=== PATIENT | female | born 2000 | race Caucasian/White ===

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

== ENCOUNTER 2018-02-18 11:46 | Emergency (ER) | payer SELFPAY ==
[2018-02-18 12:32] LABS: Absolute Monocytes 0.5 K/uL (0.1-1.3); Absolute Neutrophil 6.9 K/uL (1.8-8.0); Basophils % 0.5 % (0-1.3); Eosinophils % 0.5 % (0-4.4); Hematocrit 42.5 % (36.0-45.0); Lymphocytes % 20.7 % (15.3-44.8); MCH 29.2 pg (27.0-35.0); MCV 86.6 fL (80-100); MPV 7.6 fL (7.6-11.3); Monocytes % 5.4 % (3.3-12.3)
[2018-02-18] MEDS ORDERED: NA CHLORIDE 0.9% 1,000 ML ONE (12:32)
[2018-02-18] MEDS ORDERED: ONDANSETRON 4 MG/2 ML VIAL ONE (12:32)
[2018-02-18 12:45] LABS: ALT/SGPT 30 U/L (12-78); AST/SGOT 18 U/L (15-37); Albumin 3.7 g/dL (3.4-5.0); Alkaline Phosphatase 94 U/L (45-117); Amylase Level 31 U/L (25-115); BUN Blood Urea Nitrogen 6 mg/dL (7-18); Bicarbonate 27 mmol/L (21-32); Bilirubin Direct < 0.1 mg/dL (0-0.2); Bilirubin Total 0.3 mg/dL (0.2-1.0); Glucose Level 91 mg/dL (74-106); Lipase 68 U/L (73-393); Potassium 4.1 mmol/L (3.5-5.1); Protein, Total 7.9 g/dL (6.4-8.2); Sodium Level 140 mmol/L (136-145)
--- NOTE | 2018-02-18 13:00 | EDPHYS ---
Physician Documentation [facility] Name: Mallory Parra Age: 17 yrs Sex: Female : 2000 Arrival Date: 02/18/2018 Time: 11:50 Bed 13 Private MD: None, None ED Physician Claudio Riddle HPI: 02/18 12:31 This 17 yrs old Female presents to ER via Ambulatory with complaints of kb Vomiting/Diarrhea. 12:31 The patient presents to the emergency department with nausea, vomiting, diarrhea. kb Onset: The symptoms/episode began/occurred 2 week(s) ago. Possible causes: unknown. The symptoms are aggravated by nothing. The symptoms are alleviated by nothing. Associated signs and symptoms: Pertinent positives: abdominal pain, diarrhea, nausea, vomiting, Pertinent negatives: anorexia, belching, constipation, dysuria, fever, flatulence, GI bleeding, hematuria, vaginal discharge. Severity of symptoms: At their worst the symptoms were moderate in the emergency department the symptoms have improved. The patient has not experienced similar symptoms in the past. The patient has not recently seen a physician. Pt reports n/v/d and abd pain intermittently for 2 weeks. States she came this morning because she threw up and it was a brownish color.. 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 - Social history:: Smoking status: Patient/guardian denies using tobacco. - Ebola Screening: : Patient negative for fever greater than or equal to 101.5 degrees Fahrenheit, and additional compatible Ebola Virus Disease symptoms Patient denies exposure to infectious person Patient denies travel to an Ebola-affected area in the 21 days before illness onset No symptoms or risks identified at this time. ROS: 12:30 Constitutional: Negative for fever, chills, and weight loss, Neck: Negative for injury, kb pain, and swelling, Cardiovascular: Negative for chest pain, palpitations, and edema, Respiratory: Negative for shortness of breath, cough, wheezing, and pleuritic chest pain, Back: Negative for injury and pain, : Negative for injury, bleeding, discharge, and swelling, MS/Extremity: Negative for injury and deformity, Skin: Negative for injury, rash, and discoloration, Neuro: Negative for headache, weakness, numbness, tingling, and seizure. 12:30 Abdomen/GI: Positive for abdominal pain, nausea, vomiting, and diarrhea. Exam: 12:30 Constitutional: This is a well developed, well nourished patient who is awake, alert, kb and in no acute distress. Head/Face: Normocephalic, atraumatic. Chest/axilla: Normal chest wall appearance and motion. Nontender with no deformity. No lesions are appreciated. Cardiovascular: Regular rate and rhythm with a normal S1 and S2. No gallops, murmurs, or rubs. Normal PMI, no JVD. No pulse deficits. Respiratory: Lungs have equal breath sounds bilaterally, clear to auscultation and percussion. No rales, rhonchi or wheezes noted. No increased work of breathing, no retractions or nasal flaring. Skin: Warm, dry with normal turgor. Normal color with no rashes, no lesions, and no evidence of cellulitis. MS/ Extremity: Pulses equal, no cyanosis. Neurovascular intact. Full, normal range of motion. Neuro: Awake and alert, GCS 15, oriented to person, place, time, and situation. Cranial nerves II-XII grossly intact. Motor strength 5/5 in all extremities. Sensory grossly intact. Cerebellar exam normal. Normal gait. 12:30 Abdomen/GI: Inspection: abdomen appears normal, Bowel sounds: normal, in all quadrants, Palpation: soft, in all quadrants, mild abdominal tenderness, in the right upper quadrant and left upper quadrant. Vital Signs: 11:54 BP 133 / 82; Pulse 75; Resp 16; Temp 97.9; Pulse Ox 98% on R/A; Weight 81.65 kg; Height aj 5 ft. 1 in. (154.94 cm); 11:54 Body Mass Index 34.01 (81.65 kg, 154.94 cm) aj MDM: 12:06 Patient medically screened. kb 12:29 Data reviewed: vital signs, nurses notes. Data interpreted: Pulse oximetry: on room air kb is 98 %. Interpretation: normal. 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 02/18 12:06 Order name: Amylase, Serum; Complete Time: 12:56 kb 02/18 12:06 Order name: Basic Metabolic Panel; Complete Time: 12:56 kb 02/18 12:06 Order name: CBC with Diff; Complete Time: 12:56 kb 02/18 12:06 Order name: Hepatic Function; Complete Time: 12:56 kb 02/18 12:06 Order name: Lipase; Complete Time: 12:56 kb 02/18 12:06 Order name: Urine Test (obtain specimen); Complete Time: 12:33 kb 02/18 12:06 Order name: IV Saline Lock; Complete Time: 12:20 kb 02/18 12:06 Order name: Labs collected and sent; Complete Time: 12:20 kb 02/18 12:06 Order name: Urine Dipstick-Ancillary (obtain specimen); Complete Time: 12:33 kb Administered Medications: 12:33 Drug: Zofran 4 mg Route: IVP; Site: right antecubital; la1 13:04 Follow up: Response: No adverse reaction la1 12:33 Drug: NS 0.9% 1000 ml Route: IV; Rate: 1000 ml; Site: right antecubital; la1 13:04 Follow up: IV Status: Completed infusion la1 Disposition: 02/19 09:16 Co-signature as Attending Physician, Claudio Riddle MD I agree with the assessment and andrew plan of care. Disposition: 02/18/18 12:59 Discharged to Home. Impression: Nausea with vomiting, unspecified, Diarrhea, unspecified. - Condition is Stable. - Discharge Instructions: Food Choices to Help Relieve Diarrhea, Adult, Nausea and Vomiting, Adult, [id number], Diarrhea, Adult, [id number]. - Prescriptions for Bentyl 20 mg Oral Tablet - take 1 tablet by ORAL route every 6 hours As needed; 20 tablet. Zofran 4 mg Oral Tablet - take 1 tablet by ORAL route every 6 hours As needed; 20 tablet. - Medication Reconciliation Form, Thank You Letter, Antibiotic Education, Prescription Opioid Use form. - Follow up: Emergency Department; When: As needed; Reason: Worsening of condition. Follow up: Private Physician; When: 2 - 3 days; Reason: Recheck today's complaints, Continuance of care, Re-evaluation by your physician. Signatures: Dispatcher [employer] EDMS RonnOlvinMeagan, RN INTERN-C RN INTERN-Ckb Ana Yusuf RN Claudio Handy MD MD cha Attema, Lee, RN RN la1 Corrections: (The following items were deleted from the chart) 02/18 13:05 12:59 02/18/2018 12:59 Discharged to Home. Impression: Nausea with vomiting, la1 unspecified; Diarrhea, unspecified. Condition is Stable. Forms are Medication Reconciliation Form, Thank You Letter, Antibiotic Education, Prescription Opioid Use. Follow up: Emergency Department; When: As needed; Reason: Worsening of condition. Follow up: Private Physician; When: 2 - 3 days; Reason: Recheck today's complaints, Continuance of care, Re-evaluation by your physician. kb
--- NOTE | 2018-02-18 13:00 | ER ---
Nurse's Notes [facility] Name: Mallory Parra Age: 17 yrs Sex: Female : 2000 Arrival Date: 02/18/2018 Time: 11:50 Bed 13 Private MD: None, None Diagnosis: Nausea with vomiting, unspecified;Diarrhea, unspecified Presentation: 02/18 11:53 Presenting complaint: Patient states: Vomiting and diarrhea since this AM. Denies aj abdominal pain. Transition of care: patient was not received from another setting of care. Onset of symptoms was February 18, 2018. Risk Assessment: Do you want to hurt yourself or someone else? Patient reports no desire to harm self or others. Initial Sepsis Screen: Does the patient meet any 2 criteria? No. Patient's initial sepsis screen is negative. Does the patient have a suspected source of infection? No. Patient's initial sepsis screen is negative. Care prior to arrival: None. 11:53 Method Of Arrival: Ambulatory aj 11:53 Acuity: YOEL 3 aj Triage Assessment: 11:54 General: Appears in no apparent distress. comfortable, Behavior is calm, cooperative, aj appropriate for age. Pain: Denies pain. Neuro: Level of Consciousness is awake, alert, obeys commands, Oriented to person, place, time, situation, Appropriate for age. Respiratory: Airway is patent Respiratory effort is even, unlabored, Respiratory pattern is regular, symmetrical. GI: Reports diarrhea, nausea, vomiting. Derm: Skin is intact, is healthy with good turgor, Skin is pink, warm \T\ dry. normal. 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 - Social history:: Smoking status: Patient/guardian denies using tobacco. - Ebola Screening: : Patient negative for fever greater than or equal to 101.5 degrees Fahrenheit, and additional compatible Ebola Virus Disease symptoms Patient denies exposure to infectious person Patient denies travel to an Ebola-affected area in the 21 days before illness onset No symptoms or risks identified at this time. Screenin:20 Abuse screen: Denies threats or abuse. Denies injuries from another. Nutritional la1 screening: No deficits noted. Tuberculosis screening: No symptoms or risk factors identified. Fall Risk None identified. Assessment: 12:19 General: Appears in no apparent distress. Behavior is calm, cooperative. Pain: Denies la1 pain. Neuro: Level of Consciousness is awake, alert, obeys commands, Oriented to person, place, time, situation. Cardiovascular: Capillary refill < 3 seconds Patient's skin is warm and dry. Respiratory: Airway is patent Respiratory effort is even, unlabored, Respiratory pattern is regular, symmetrical. GI: Abdomen is round non-distended, Bowel sounds present X 4 quads. Abd is soft and non tender X 4 quads. : No signs and/or symptoms were reported regarding the genitourinary system. Vital Signs: 11:54 BP 133 / 82; Pulse 75; Resp 16; Temp 97.9; Pulse Ox 98% on R/A; Weight 81.65 kg; Height aj 5 ft. 1 in. (154.94 cm); 11:54 Body Mass Index 34.01 (81.65 kg, 154.94 cm) aj ED Course: 11:50 Patient arrived in ED. mr 11:50 None, None is Private Physician. mr 11:53 Triage completed. aj 11:54 Arm band placed on right wrist. Patient placed in waiting room, Patient notified of aj wait time. 11:57 Braeden Browne RN is Primary Nurse. la1 12:06 Meagan Brody FNP-C is [facility]. kb 12:06 Claudio Riddle MD is Attending Physician. kb 12:19 No provider procedures requiring assistance completed. Inserted saline lock: 20 gauge la1 in right antecubital area, using aseptic technique. Blood collected. 12:20 Patient has correct armband on for positive identification. la1 13:05 IV discontinued, intact, bleeding controlled, No redness/swelling at site. Pressure la1 dressing applied. Administered Medications: 12:33 Drug: Zofran 4 mg Route: IVP; Site: right antecubital; la1 13:04 Follow up: Response: No adverse reaction la1 12:33 Drug: NS 0.9% 1000 ml Route: IV; Rate: 1000 ml; Site: right antecubital; la1 13:04 Follow up: IV Status: Completed infusion la1 Outcome: 12:59 Discharge ordered by . bao 13:05 Discharged to home ambulatory. la1 13:05 Condition: stable 13:05 Discharge instructions given to patient, Instructed on discharge instructions, follow up and referral plans. medication usage, Demonstrated understanding of instructions, follow-up care, medications, Prescriptions given X 2. 13:05 Patient left the ED. la1 Signatures: Meagan Brody, CHEMICAL EDUCATOR-C CHEMICAL EDUCATOR-Ana Leon, RN RN Roslyn Johnston Lee RN RN la1
== END 2018-02-18 13:05 | disposition home or self-care (01) ==
LOC: ER 11:46
DX: R11.2 Nausea with vomiting, unspecified (principal); R19.7 Diarrhea, unspecified; M41.9 Scoliosis, unspecified; J40 Bronchitis, not specified as acute or chronic
CPT/HCPCS: 36415; 80048; 80076; 82150; 83690; 85025; 96361; 96374; 99284; J2405; J7030

== ENCOUNTER 2019-06-17 23:34 | Emergency (ER) | payer BC, SELFPAY ==
--- NOTE | 2019-06-18 00:47 | EDPHYS ---
Physician Documentation [facility] Name: Mallory Parra Age: 19 yrs Sex: Female : 2000 Arrival Date: 06/17/2019 Time: 23:38 Bed 7 Private MD: ED Physician Piyush Lindquist HPI: 06/18 00:35 This 19 yrs old Female presents to ER via Ambulatory with complaints of Flu tw4 Symptoms. 00:35 The patient or guardian reports cough. Onset: The symptoms/episode began/occurred tw4 today. Severity of symptoms: At their worst the symptoms were mild. Modifying factors: The symptoms are alleviated by nothing, the symptoms are aggravated by nothing. The patient has not experienced similar symptoms in the past. 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 - Social history:: Smoking status: Patient/guardian denies using tobacco, Smoking status: Patient/guardian denies using tobacco. - Ebola Screening: : Patient negative for fever greater than or equal to 101.5 degrees Fahrenheit, and additional compatible Ebola Virus Disease symptoms Patient denies exposure to infectious person No symptoms or risks identified at this time. ROS: 06/18 00:35 Cardiovascular: Negative for chest pain, palpitations, and edema, Respiratory: Negative tw4 for shortness of breath, cough, wheezing, and pleuritic chest pain, Back: Negative for injury and pain, MS/Extremity: Negative for injury and deformity, Skin: Negative for injury, rash, and discoloration, Neuro: Negative for headache, weakness, numbness, tingling, and seizure. Constitutional: Positive for body aches, chills. Abdomen/GI: Positive for nausea, Negative for abdominal pain, nausea and vomiting, nausea, vomiting, and diarrhea, vomiting, diarrhea, constipation, abdominal cramps, abdominal distension, anorexia, dysphagia, hematemesis, black/tarry stool, rectal pain. Exam: 00:35 Constitutional: This is a well developed, well nourished patient who is awake, alert, tw4 and in no acute distress. Head/Face: Normocephalic, atraumatic. Chest/axilla: Normal chest wall appearance and motion. Nontender with no deformity. No lesions are appreciated. Cardiovascular: Regular rate and rhythm with a normal S1 and S2. No gallops, murmurs, or rubs. Normal PMI, no JVD. No pulse deficits. Respiratory: Lungs have equal breath sounds bilaterally, clear to auscultation and percussion. No rales, rhonchi or wheezes noted. No increased work of breathing, no retractions or nasal flaring. Abdomen/GI: Soft, non-tender, with normal bowel sounds. No distension or tympany. No guarding or rebound. No evidence of tenderness throughout. Back: No spinal tenderness. No costovertebral tenderness. Full range of motion. MS/ Extremity: Pulses equal, no cyanosis. Neurovascular intact. Full, normal range of motion. Neuro: Awake and alert, GCS 15, oriented to person, place, time, and situation. Cranial nerves II-XII grossly intact. Motor strength 5/5 in all extremities. Sensory grossly intact. Cerebellar exam normal. Normal gait. Vital Signs: 06/17 23:49 BP 126 / 83; Pulse 75; Resp 18; Temp 98; Pulse Ox 97% ; Weight 81.65 kg; Height 5 ft. 4 wh in. (162.56 cm); 06/18 00:15 BP 114 / 76; Pulse 71; Resp 18; Pulse Ox 97% on R/A; ea 00:56 BP 121 / 94; Pulse 75; Resp 16; Temp 98.4(O); Pulse Ox 98% on R/A; Pain 4/10; tl1 06/17 23:49 Body Mass Index 30.90 (81.65 kg, 162.56 cm) wh MDM: 06/17 23:46 Patient medically screened. tw4 06/18 00:35 Data reviewed: vital signs, nurses notes. Data interpreted: Pulse oximetry: tw4 Interpretation: normal. Counseling: I had a detailed discussion with the patient and/or guardian regarding: the historical points, exam findings, and any diagnostic results supporting the discharge/admit diagnosis. Special discussion: I discussed with the patient/guardian in detail that at this point there is no indication for admission to the hospital. It is understood, however, that if the symptoms persist or worsen the patient needs to return immediately for re-evaluation. 06/17 23:46 Order name: Flu tw4 06/17 23:46 Order name: Strep tw4 06/18 00:31 Order name: Group A Streptococcus Rapid Sc EDAR 06/18 00:31 Order name: Influenza Screen (A EDMS Administered Medications: 00:52 Drug: TORadol 60 mg Route: IM; Site: left gluteus; tl1 01:08 Follow up: Response: No adverse reaction; No change in condition; Medication tl1 administered at discharge. Disposition: 06/18/19 00:46 Discharged to Home. Impression: Viral infection, unspecified. - Condition is Stable. - Discharge Instructions: Antibiotic Resistance, Viral Respiratory Infection, Viral Respiratory Infection, [id number]. - Prescriptions for Ibuprofen 800 mg Oral Tablet - take 1 tablet by ORAL route every 8 hours As needed take with food; 30 tablet. - Medication Reconciliation Form, Thank You Letter, Antibiotic Education, Prescription Opioid Use form. - Follow up: Private Physician; When: Upon discharge from the Emergency Department; Reason: Recheck today's complaints, Continuance of care. - Problem is new. - Symptoms are unchanged. Signatures: Dispatcher [employer] [facility] Destiny Perez RN DONNA tl1 Priscilla Flynn RN Darlyn Guerrero ea, Terrence, MD MD tw4 Corrections: (The following items were deleted from the chart) 01:09 00:46 06/18/2019 00:46 Discharged to Home. Impression: Viral infection, unspecified. tl1 Condition is Stable. Forms are Medication Reconciliation Form, Thank You Letter, Antibiotic Education, Prescription Opioid Use. Follow up: Private Physician; When: Upon discharge from the Emergency Department; Reason: Recheck today's complaints, Continuance of care. Problem is new. Symptoms are unchanged. tw4
--- NOTE | 2019-06-18 00:47 | ER ---
Nurse's Notes [facility] Name: Mallory Parra Age: 19 yrs Sex: Female : 2000 Arrival Date: 06/17/2019 Time: 23:38 Bed 7 Private MD: Diagnosis: Viral infection, unspecified Presentation: 06/17 23:47 Presenting complaint: Patient states: She was seen in [place] and was prescribed Amox for cough, states she still has cough and 3 days ago started having chills, body aches, congestion, runny nose and nausea but denies fever. Transition of care: patient was not received from another setting of care. Onset of symptoms was June 15, 2019. Risk Assessment: Do you want to hurt yourself or someone else? Patient reports no desire to harm self or others. Initial Sepsis Screen: Does the patient meet any 2 criteria? No. Patient's initial sepsis screen is negative. Does the patient have a suspected source of infection? No. Patient's initial sepsis screen is negative. Care prior to arrival: None. 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 - Social history:: Smoking status: Patient/guardian denies using tobacco, Smoking status: Patient/guardian denies using tobacco. - Ebola Screening: : Patient negative for fever greater than or equal to 101.5 degrees Fahrenheit, and additional compatible Ebola Virus Disease symptoms Patient denies exposure to infectious person No symptoms or risks identified at this time. Screenin:50 Abuse screen: Denies threats or abuse. Denies injuries from another. Nutritional screening: No deficits noted. Tuberculosis screening: No symptoms or risk factors identified. Fall Risk None identified. Assessment: 23:50 General: Appears in no apparent distress. Behavior is calm, cooperative, appropriate ea for age. Pain: Denies pain. Neuro: Level of Consciousness is awake, alert, obeys commands, Oriented to person, place, time, situation. Cardiovascular: Patient's skin is warm and dry. Respiratory: Airway is patent Respiratory effort is even, unlabored, Respiratory pattern is regular, symmetrical. Derm: Skin is pink, warm \T\ dry. Vital Signs: 23:49 BP 126 / 83; Pulse 75; Resp 18; Temp 98; Pulse Ox 97% ; Weight 81.65 kg; Height 5 ft. 4 wh in. (162.56 cm); 06/18 00:15 BP 114 / 76; Pulse 71; Resp 18; Pulse Ox 97% on R/A; ea 00:56 BP 121 / 94; Pulse 75; Resp 16; Temp 98.4(O); Pulse Ox 98% on R/A; Pain 4/10; tl1 06/17 23:49 Body Mass Index 30.90 (81.65 kg, 162.56 cm) ED Course: 06/17 23:38 Patient arrived in ED. jg7 23:46 Piyush Lindquist MD is Attending Physician. tw4 23:49 Triage completed. 23:49 Priscilla Flynn RN is Primary Nurse. ea 23:51 Arm band placed on right wrist. ea 23:51 Patient has correct armband on for positive identification. Bed in low position. Call light in reach. Side rails up X 1. Pulse ox on. NIBP on. 23:52 Patient has correct armband on for positive identification. Bed in low position. Call light in reach. 06/18 01:07 No provider procedures requiring assistance completed. Patient did not have IV access tl1 during this emergency room visit. Administered Medications: 00:52 Drug: TORadol 60 mg Route: IM; Site: left gluteus; tl1 01:08 Follow up: Response: No adverse reaction; No change in condition; Medication tl1 administered at discharge. Outcome: 00:46 Discharge ordered by . tw4 01:07 Discharged to home ambulatory, with friend. tl1 01:07 Condition: stable 01:07 Discharge instructions given to patient, Instructed on discharge instructions, follow up and referral plans. medication usage, Demonstrated understanding of instructions, follow-up care, medications, Prescriptions given X 1. 01:09 Patient left the ED. tl1 Signatures: Destiny Perez RN RN tl1 Priscilla Flynn RN RN ea Oriana, Piyush Felix MD MD tw4 Micha, Monica [email or web address]
[2019-06-18] MEDS ORDERED: KETOROLAC 30 MG/ML INJ ONE (00:50)
[2019-06-18 03:54] VITALS: BP 121/94; TEMP 98.4; O2SAT 98
== END 2019-06-18 01:09 | disposition home or self-care (01) ==
LOC: ER 23:34
DX: B34.9 Viral infection, unspecified (principal); F32.9 Major depressive disorder, single episode, unspecified; F90.9 Attention-deficit hyperactivity disorder, unspecified type
CPT/HCPCS: 87070; 87081; 87804; 96372; 99283

== ENCOUNTER 2019-10-03 13:55 | Emergency (ER) | payer BC ==
--- NOTE | 2019-10-03 14:46 | EDPHYS ---
Physician Documentation [facility] Name: Mallory Parra Age: 19 yrs Sex: Female : 2000 Arrival Date: 10/03/2019 Time: 14:00 Bed 13 Private MD: Lincoln Sims E ED Physician Bonita Walters HPI: 10/02 14:46 This 19 yrs old Female presents to ER via Ambulatory with complaints of Back jr8 Pain. 14:46 The patient presents with pain that is acute. The symptoms are located in the low back. jr8 Onset: The symptoms/episode began/occurred acutely, today. The pain does not radiate. Associated signs and symptoms: The patient has no apparent associated signs or symptoms. The problem was sustained when lifting heavy object. Modifying factors: The patient symptoms are alleviated by rest, the patient symptoms are aggravated by bending, movement, standing. Severity of symptoms: At their worst the symptoms were mild, in the emergency department the symptoms are unchanged. The patient has not experienced similar symptoms in the past. The patient has not recently seen a physician. 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 - Social history:: Smoking status: Patient denies any tobacco usage or history of. ROS: 14:46 Eyes: Negative for injury, pain, redness, and discharge, ENT: Negative for injury, jr8 pain, and discharge, Neck: Negative for injury, pain, and swelling, Cardiovascular: Negative for chest pain, palpitations, and edema, Respiratory: Negative for shortness of breath, cough, wheezing, and pleuritic chest pain, Abdomen/GI: Negative for abdominal pain, nausea, vomiting, diarrhea, and constipation, MS/Extremity: Negative for injury and deformity, Skin: Negative for injury, rash, and discoloration, Neuro: Negative for headache, weakness, numbness, tingling, and seizure. 14:46 Back: Positive for pain at rest, pain with movement, Negative for decreased range of motion, radiated pain. Exam: 14:46 Eyes: Pupils equal round and reactive to light, extra-ocular motions intact. Lids and jr8 lashes normal. Conjunctiva and sclera are non-icteric and not injected. Cornea within normal limits. Periorbital areas with no swelling, redness, or edema. ENT: Nares patent. No nasal discharge, no septal abnormalities noted. Tympanic membranes are normal and external auditory canals are clear. Oropharynx with no redness, swelling, or masses, exudates, or evidence of obstruction, uvula midline. Mucous membranes moist. Neck: Trachea midline, no thyromegaly or masses palpated, and no cervical lymphadenopathy. Supple, full range of motion without nuchal rigidity, or vertebral point tenderness. No Meningismus. Cardiovascular: Regular rate and rhythm with a normal S1 and S2. No gallops, murmurs, or rubs. Normal PMI, no JVD. No pulse deficits. Respiratory: Lungs have equal breath sounds bilaterally, clear to auscultation and percussion. No rales, rhonchi or wheezes noted. No increased work of breathing, no retractions or nasal flaring. Abdomen/GI: Soft, non-tender, with normal bowel sounds. No distension or tympany. No guarding or rebound. No evidence of tenderness throughout. Back: No spinal tenderness. No costovertebral tenderness. Full range of motion. Skin: Warm, dry with normal turgor. Normal color with no rashes, no lesions, and no evidence of cellulitis. MS/ Extremity: Pulses equal, no cyanosis. Neurovascular intact. Full, normal range of motion. Neuro: Awake and alert, GCS 15, oriented to person, place, time, and situation. Cranial nerves II-XII grossly intact. Motor strength 5/5 in all extremities. Sensory grossly intact. Cerebellar exam normal. Normal gait. Vital Signs: 14:03 BP 128 / 66; Pulse 84; Resp 17; Temp 98.9; Pulse Ox 99% ; Weight 83.91 kg; Pain 3/10; jl7 MDM: 14:07 Patient medically screened. jr8 14:44 Data reviewed: vital signs, nurses notes, and as a result, I will discharge patient. jr8 Data interpreted: Pulse oximetry: on room air is 99 %. Interpretation: normal. Counseling: I had a detailed discussion with the patient and/or guardian regarding: the historical points, exam findings, and any diagnostic results supporting the discharge/admit diagnosis, the need for outpatient follow up, a family practitioner, to return to the emergency department if symptoms worsen or persist or if there are any questions or concerns that arise at home. Administered Medications: No medications were administered Disposition: 16:22 Co-signature as Attending Physician, Bonita Walters MD. ma2 Disposition: 10/03/19 14:45 Discharged to Home. Impression: Low back pain. - Condition is Stable. - Discharge Instructions: Back Pain, Adult, Musculoskeletal Pain, Back Injury Prevention, Uyep-qs-Vimo, Back Exercises, [id number], Heat Therapy. - Prescriptions for meloxicam 15 mg Oral tablet - take 1 tablet by ORAL route once daily As needed; 10 tablet. - Medication Reconciliation Form, Thank You Letter, Antibiotic Education, Prescription Opioid Use, Work release form form. - Follow up: Lincoln Sims MD; When: 1 week; Reason: Recheck today's complaints, Continuance of care, Re-evaluation by your physician. - Problem is new. - Symptoms have improved. Signatures: Lam Souza PA PA jr8 Ray Cancino RN RN jl7 Bonita Walters MD MD ma2 Corrections: (The following items were deleted from the chart) 14:55 14:45 10/03/2019 14:45 Discharged to Home. Impression: Low back pain. Condition is jl7 Stable. Forms are Medication Reconciliation Form, Thank You Letter, Antibiotic Education, Prescription Opioid Use. Follow up: Lincoln Sims; When: 1 week; Reason: Recheck today's complaints, Continuance of care, Re-evaluation by your physician. Problem is new. Symptoms have improved. jr8
--- NOTE | 2019-10-03 14:46 | ER ---
Nurse's Notes [facility] Name: Mallory Parra Age: 19 yrs Sex: Female : 2000 Arrival Date: 10/03/2019 Time: 14:00 Bed 13 Private MD: Lincoln Sims E Diagnosis: Low back pain Presentation: 10/02 14:03 Chief complaint: Patient states: Lifting a crate of candy at work at 1300 and my lower jl7 back started hurting. Coronavirus screen: Patient denies fever greater than 100.4F, cough, shortness of breath, or difficulty breathing. Proceed with normal triage process. Ebola Screen: No symptoms or risks identified at this time. Initial Sepsis Screen: Does the patient meet any 2 criteria? No. Patient's initial sepsis screen is negative. Does the patient have a suspected source of infection? No. Patient's initial sepsis screen is negative. Risk Assessment: Do you want to hurt yourself or someone else? Patient reports no desire to harm self or others. Onset of symptoms was October 03, 2019 at 13:00. 14:03 Method Of Arrival: Ambulatory 7 14:03 Acuity: YOEL 4 jl7 Triage Assessment: 14:05 General: Appears in no apparent distress. uncomfortable, Behavior is calm, cooperative, jl7 appropriate for age. Pain: Complains of pain in low back area Pain currently is 3 out of 10 on a pain scale. Musculoskeletal: Range of motion: intact in all extremities. 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 - Social history:: Smoking status: Patient denies any tobacco usage or history of. Screenin:51 Abuse screen: Denies threats or abuse. Denies injuries from another. Nutritional jl7 screening: No deficits noted. Tuberculosis screening: No symptoms or risk factors identified. Fall Risk None identified. Assessment: 14:10 General: Appears in no apparent distress. uncomfortable, Behavior is calm, cooperative, jl7 appropriate for age. Pain: Complains of pain in low back area Pain currently is 3 out of 10 on a pain scale. Neuro: Level of Consciousness is awake, alert, obeys commands, Oriented to person, place, time, situation, Moves all extremities. Full function Gait is steady. Cardiovascular: Patient's skin is warm and dry. Respiratory: Airway is patent Respiratory effort is even, unlabored, Respiratory pattern is regular, symmetrical. Derm: Skin is pink, warm \T\ dry. Vital Signs: 14:03 BP 128 / 66; Pulse 84; Resp 17; Temp 98.9; Pulse Ox 99% ; Weight 83.91 kg; Pain 3/10; jl7 ED Course: 14:00 Patient arrived in ED. mr 14:00 Lincoln Sims MD is Private Physician. mr 14:04 Triage completed. jl7 14:05 Arm band placed on right wrist. jl7 14:07 [facility]. jr8 14:07 Bonita Walters MD is Attending Physician. jr8 14:10 Patient has correct armband on for positive identification. Bed in low position. Call jl7 light in reach. Side rails up X 1. 14:11 Elaine Eisenberg, DONNA is Primary Nurse. ll1 14:45 Lincoln Sims MD is Referral Physician. jr8 14:51 No provider procedures requiring assistance completed. Patient did not have IV access jl7 during this emergency room visit. Administered Medications: No medications were administered Outcome: 14:45 Discharge ordered by . jr8 14:51 Discharged to home ambulatory. jl7 14:51 Condition: stable 14:51 Discharge instructions given to patient, Instructed on discharge instructions, follow up and referral plans. medication usage, Demonstrated understanding of instructions, follow-up care, medications, Prescriptions given X 1. 14:55 Patient left the ED. jl7 Signatures: Rosalie Parada mr Lam Souza PA PA jr8 Ray Cancino RN RN jl7 Elaine Eisenberg RN RN ll1
[2019-10-03 15:06] VITALS: O2SAT 99
[2019-10-03 15:15] VITALS: BP 123/85; TEMP 98.5
== END 2019-10-03 14:55 | disposition home or self-care (01) ==
LOC: ER 13:55
DX: M54.5 Low back pain (principal); F32.9 Major depressive disorder, single episode, unspecified
CPT/HCPCS: 99282

== ENCOUNTER 2020-05-04 17:42 | Emergency (ER) | payer BC ==
[2020-05-04 20:09] LABS: Urine Blood 3+ (NEG); Urine Glucose NEGATIVE (NEG); Urine Protein NEGATIVE (NEG); Urine Specific Gravity 1.025 (1.005-1.030); Urine pH 6.5 (5.0-7.0)
[2020-05-04] MEDS ORDERED: AZITHROMYCIN 250 MG TAB ONE (20:17)
[2020-05-04] MEDS ORDERED: METHYLPREDNISOLONE 125 MG INJ ONE (20:18)
[2020-05-04] MEDS ORDERED: DIPHENHYDRAMINE 25 MG TAB/CAP ONE (20:18)
[2020-05-04] MEDS ORDERED: WATER FOR INJ,STERILE 10 ML ONE (20:19)
[2020-05-04] MEDS ORDERED: FAMOTIDINE 20 MG TAB ONE (20:19)
[2020-05-04] MEDS ORDERED: CEFTRIAXONE 250 MG/VIAL ONE (20:19)
--- NOTE | 2020-05-04 21:04 | ER ---
Nurse's Notes [facility] Name: Mallory Parra Age: 19 yrs Sex: Female : 2000 Arrival Date: 05/04/2020 Time: 17:45 Bed 16 Private MD: Diagnosis: Urticaria, unspecified;Abnormal uterine and vaginal bleeding, unspecified Presentation: 05/04 17:46 Chief complaint: Patient states: rash x 1 week, also reports that she had sexual sv intercourse with someone a couple of days ago and started having vaginal spotting since. Coronavirus screen: Client denies travel out of the [place] in the last 14 days. At this time, the client does not indicate any symptoms associated with coronavirus-19. Ebola Screen: No symptoms or risks identified at this time. Risk Assessment: Do you want to hurt yourself or someone else? Patient reports no desire to harm self or others. Onset of symptoms was April 2020. 17:46 Method Of Arrival: Ambulatory sv 17:46 Acuity: YOEL 3 sv 17:47 Initial Sepsis Screen: Does the patient meet any 2 criteria? HR > 90 bpm. No. Patient's sv initial sepsis screen is negative. Does the patient have a suspected source of infection? No. Patient's initial sepsis screen is negative. Triage Assessment: 17:49 General: Appears in no apparent distress. comfortable, Behavior is calm, cooperative, sv appropriate for age. Pain: Denies pain. Neuro: Level of Consciousness is awake, alert, obeys commands, Oriented to person, place, time, situation, Gait is steady. Respiratory: Respiratory effort is even, unlabored. : Reports vaginal bleeding that is spotty. Derm: Rash noted that is red, on back, chest, abdomen, right arm, left arm, right leg and left leg. 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 - Social history:: Smoking status: Patient denies any tobacco usage or history of. Screenin:47 Abuse screen: Denies threats or abuse. Denies injuries from another. Nutritional zb screening: No deficits noted. Tuberculosis screening: No symptoms or risk factors identified. Fall Risk None identified. Assessment: 18:40 General: Appears in no apparent distress. comfortable, well groomed, Behavior is calm, zb cooperative, appropriate for age, Denies fever, feeling ill, fatigue, chills. Pain: Complains of pain in abdomen Quality of pain is described as crampy, Pain began 1 day ago. Neuro: No deficits noted. Level of Consciousness is awake, alert, obeys commands, Oriented to person, place, time, situation. Cardiovascular: No deficits noted. Reports None. Cardiovascular: Reports Capillary refill < 3 seconds in bilateral fingers. Respiratory: No deficits noted. Airway is patent Trachea midline Respiratory effort is even, unlabored, Respiratory pattern is regular. GI: Abdomen is round obese. : Reports vaginal bleeding that is spotty. :. Derm: Skin is intact, is healthy with good turgor, Rash noted that is itchy, papular, red, raised, on trunkal- bilateral flank area, upper thigh area, and b/t wrist. Musculoskeletal: No deficits noted. No signs and/or symptoms reported regarding the musculoskeletal system. Circulation, motion, and sensation intact. 18:59 Reassessment: spoke to pt states she would like an STD test. Had unprotected sex on zb 05/02/20. 19:05 Reassessment: Patient appears in no apparent distress at this time. Patient and/or jb4 family updated on plan of care and expected duration. Pain level reassessed. Patient is alert, oriented x 3, equal unlabored respirations, skin warm/dry/pink. 20:10 Reassessment: Patient appears in no apparent distress at this time. Patient and/or jb4 family updated on plan of care and expected duration. Pain level reassessed. Patient is alert, oriented x 3, equal unlabored respirations, skin warm/dry/pink. 21:11 Reassessment: Patient appears in no apparent distress at this time. Patient and/or jb4 family updated on plan of care and expected duration. Pain level reassessed. Patient is alert, oriented x 3, equal unlabored respirations, skin warm/dry/pink. Vital Signs: 17:47 BP 141 / 91; Pulse 92; Resp 16; Temp 98.7; Pulse Ox 100% ; Weight 88 kg; Height 5 ft. 1 sv in. (154.94 cm); 20:30 BP 121 / 74; Pulse 80; Resp 16; Pulse Ox 99% on R/A; jb4 17:47 Body Mass Index 36.66 (88.00 kg, 154.94 cm) sv ED Course: 17:45 Patient arrived in ED. sv 17:46 Arm band placed on. sv 17:47 Triage completed. sv 18:30 Aristides Walker NP is PHCP. pm1 18:30 Claudio Riddle MD is Attending Physician. pm1 18:40 Rehana Duran, DONNA is Primary Nurse. zb 18:47 Patient has correct armband on for positive identification. Bed in low position. Call zb light in reach. Side rails up X 1. Adult w/ patient. Pulse ox on. NIBP on. Door closed. Noise minimized. Warm blanket given. Head of bed elevated. 18:50 No provider procedures requiring assistance completed. zb 19:34 Primary Nurse role handed off by Rehana Duran RN mw2 19:46 Simon Smith, DONNA is Primary Nurse. jb4 21:11 Patient did not have IV access during this emergency room visit. jb4 Administered Medications: 20:13 Drug: AZITHromycin 1 grams Route: PO; jb4 21:00 Follow up: Response: No adverse reaction jb4 20:14 Drug: Pepcid 20 mg Route: PO; jb4 21:00 Follow up: Response: No adverse reaction jb4 20:14 Drug: Benadryl 25 mg Route: PO; jb4 21:00 Follow up: Response: No adverse reaction jb4 20:25 Drug: SOLU-Medrol 125 mg Route: IM; Site: left gluteus; jb4 21:00 Follow up: Response: No adverse reaction jb4 20:25 Drug: Rocephin (cefTRIAXone) 250 mg Route: IM; Site: left gluteus; jb4 21:00 Follow up: Response: No adverse reaction jb4 Outcome: 21:04 Discharge ordered by . pm1 21:11 Discharged to home ambulatory, with friend. jb4 21:11 Condition: stable 21:11 Discharge instructions given to patient, Instructed on discharge instructions, follow up and referral plans. medication usage, Demonstrated understanding of instructions, follow-up care, medications, Prescriptions given X 3. 21:12 Patient left the ED. jb4 Signatures: Salma Wilcox, RN RN sv Aristides Walker, ELLYN SALES DESIGNER pm1 Simon Smith RN RN jb4 Paresh Montenegro mw2 Rehana Duran RN RN zb Corrections: (The following items were deleted from the chart) 17:49 17:47 Pulse 92bpm; Resp 16bpm; Pulse Ox 100%; Temp 98.7F; 88 kg; Height 5 ft. 1 in.; sv BMI: 36.6; sv
--- NOTE | 2020-05-04 21:04 | EDPHYS ---
Physician Documentation [facility] Name: Mallory Parra Age: 19 yrs Sex: Female : 2000 Arrival Date: 05/04/2020 Time: 17:45 Bed 16 Private MD: KRISTIN Physician Claudio Riddle HPI: 05/04 19:26 This 19 yrs old Female presents to ER via Ambulatory with complaints of pm1 Vaginal Bleeding, Rash. 19:26 The patient presents with vaginal bleeding that is spotting. pm1 19:26 Onset: The symptoms/episode began/occurred 2 day(s) ago. Modifying factors: The pm1 symptoms are alleviated by nothing, the symptoms are aggravated by nothing. Associated signs and symptoms: The patient has no apparent associated signs or symptoms, Pertinent negatives: constipation, dysuria, fever, nausea, vomiting, abdominal pain. Severity of symptoms: in the emergency department the symptoms are unchanged. The patient is sexually active, does not use protection during intercourse. The patient's method of control includes nothing. Patient reports rash to body for 1 week. Vaginal spotting for two days after intercourse. Patient is concerned about possible STDs and would like treatment. 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 - Social history:: Smoking status: Patient denies any tobacco usage or history of. ROS: 19:26 Positive for vaginal bleeding, Negative for vaginal discharge, vaginal itching. pm1 19:26 Constitutional: Negative for fever, chills, and weight loss, Cardiovascular: Negative for chest pain, palpitations, and edema, Respiratory: Negative for shortness of breath, cough, wheezing, and pleuritic chest pain, Abdomen/GI: Negative for abdominal pain, nausea, vomiting, diarrhea, and constipation, Back: Negative for injury and pain, MS/Extremity: Negative for injury and deformity. 19:26 Neuro: Negative for headache, weakness, numbness, tingling, and seizure. 19:26 Skin: Positive for rash, of the abdomen and chest and back. Exam: 19:26 Constitutional: This is a well developed, well nourished patient who is awake, alert, pm1 and in no acute distress. Head/Face: Normocephalic, atraumatic. Cardiovascular: Regular rate and rhythm with a normal S1 and S2. No gallops, murmurs, or rubs. Normal PMI, no JVD. No pulse deficits. Respiratory: Lungs have equal breath sounds bilaterally, clear to auscultation and percussion. No rales, rhonchi or wheezes noted. No increased work of breathing, no retractions or nasal flaring. Abdomen/GI: Soft, non-tender, with normal bowel sounds. No distension or tympany. No guarding or rebound. No evidence of tenderness throughout. Back: No spinal tenderness. No costovertebral tenderness. Full range of motion. 19:26 Skin: consistent with urticaria, on the abdomen and chest and back. 19:26 Neuro: Exam negative for acute changes, Orientation: is normal, Motor: is normal, moves all fours, Sensation: is normal, no obvious gross deficits. 21:02 : Pelvic Exam: External exam: is normal, Speculum exam: scant bleeding, No laceration pm1 or abrasion present. Blood coming from the cervix only, Jossie THOMPSON Gift Packer. Vital Signs: 17:47 BP 141 / 91; Pulse 92; Resp 16; Temp 98.7; Pulse Ox 100% ; Weight 88 kg; Height 5 ft. 1 sv in. (154.94 cm); 20:30 BP 121 / 74; Pulse 80; Resp 16; Pulse Ox 99% on R/A; jb4 17:47 Body Mass Index 36.66 (88.00 kg, 154.94 cm) sv MDM: 18:30 Patient medically screened. pm1 19:21 Data reviewed: vital signs. Data interpreted: Pulse oximetry: on room air is 100 %. pm1 Interpretation: normal. 21:02 Counseling: I had a detailed discussion with the patient and/or guardian regarding: the pm1 historical points, exam findings, and any diagnostic results supporting the discharge/admit diagnosis, lab results, the need for outpatient follow up, to return to the emergency department if symptoms worsen or persist or if there are any questions or concerns that arise at home. 05/04 18:52 Order name: Urine Dipstick--Ancillary (enter results); Complete Time: 20:17 bd 05/04 18:52 Order name: Urine --Ancillary (enter results); Complete Time: 20:17 bd 05/04 19:22 Order name: Pelvic Exam Setup; Complete Time: 19:59 pm1 Administered Medications: 20:13 Drug: AZITHromycin 1 grams Route: PO; jb4 21:00 Follow up: Response: No adverse reaction jb4 20:14 Drug: Pepcid 20 mg Route: PO; jb4 21:00 Follow up: Response: No adverse reaction jb4 20:14 Drug: Benadryl 25 mg Route: PO; jb4 21:00 Follow up: Response: No adverse reaction jb4 20:25 Drug: SOLU-Medrol 125 mg Route: IM; Site: left gluteus; jb4 21:00 Follow up: Response: No adverse reaction jb4 20:25 Drug: Rocephin (cefTRIAXone) 250 mg Route: IM; Site: left gluteus; jb4 21:00 Follow up: Response: No adverse reaction jb4 Disposition: 05/05 06:25 Co-signature as Attending Physician, Claudio Riddle MD I agree with the assessment and andrew plan of care. Disposition: 05/04/20 21:04 Discharged to Home. Impression: Urticaria, unspecified, Abnormal uterine and vaginal bleeding, unspecified. - Condition is Stable. - Discharge Instructions: Abnormal Uterine Bleeding, Hives. - Prescriptions for Benadryl 25 mg Oral Capsule - take 1 capsule by ORAL route every 6 hours As needed; 30 tablet. Pepcid 20 mg Oral Tablet - take 1 tablet by ORAL route every 12 hours for 10 days; 20 tablet. Medrol (Yousuf) 4 mg Oral Tablets, Dose Pack - take 1 tablet by ORAL route as directed - follow package instructions; 1 packet. - Medication Reconciliation Form, Thank You Letter, Antibiotic Education, Prescription Opioid Use form. - Follow up: Emergency Department; When: As needed; Reason: Worsening of condition. Follow up: Private Physician; When: 2 - 3 days; Reason: Recheck today's complaints, Continuance of care, Re-evaluation by your physician. - Problem is new. - Symptoms have improved. Signatures: Dispatcher [employer] Salma Ayers RN RN sv Anderson, Corey, MD MD cha Marinas, Patrick, DAY CARE DIRECTOR DAY CARE DIRECTOR pm1 Simon Smith RN RN jb4 Rehana Duran RN RN zb Corrections: (The following items were deleted from the chart) 05/04 21:12 21:04 05/04/2020 21:04 Discharged to Home. Impression: Urticaria, unspecified; Abnormal jb4 uterine and vaginal bleeding, unspecified. Condition is Stable. Forms are Medication Reconciliation Form, Thank You Letter, Antibiotic Education, Prescription Opioid Use. Follow up: Emergency Department; When: As needed; Reason: Worsening of condition. Follow up: Private Physician; When: 2 - 3 days; Reason: Recheck today's complaints, Continuance of care, Re-evaluation by your physician. Problem is new. Symptoms have improved. pm1
[2020-05-04 21:17] VITALS: TEMP 98.7
[2020-05-04 21:19] VITALS: BP 121/74; O2SAT 99
== END 2020-05-04 21:12 | disposition home or self-care (01) ==
LOC: ER 17:42
DX: N93.9 Abnormal uterine and vaginal bleeding, unspecified (principal); L50.9 Urticaria, unspecified
CPT/HCPCS: 81025; 81003; 96372; 99283; J2930; J0696

== ENCOUNTER 2021-04-20 11:03 | Emergency (ER) | payer BC, SELFPAY ==
[2021-04-20] MEDS ORDERED: NA CHLORIDE 0.9% 1,000 ML ONE (12:10)
[2021-04-20] MEDS ORDERED: ONDANSETRON 4 MG/2 ML VIAL ONE (12:10)
[2021-04-20 12:15] LABS: Absolute Lymphocytes (CBC) 2.1 K/uL (0.7-4.9); Basophils % 0.6 % (0-1.3); Hematocrit 41.7 % (36.0-45.0); MPV 7.5 fL (7.6-11.3)
[2021-04-20 12:28] LABS: Albumin 3.7 g/dL (3.4-5.0); Bilirubin Direct 0.1 mg/dL (0-0.2); Bilirubin Total 0.4 mg/dL (0.2-1.0); Potassium 3.7 mmol/L (3.5-5.1); Protein, Total 7.5 g/dL (6.4-8.2)
[2021-04-20 12:41] LABS: Urine Specific Gravity/Preg 1.025 (1.005-1.030)
[2021-04-20] MEDS ORDERED: FAMOTIDINE 20 MG/2 ML VIAL IV ONE (12:42)
--- NOTE | 2021-04-20 14:37 | RAD REPORT ---
EXAM DESCRIPTION: CT - Chest Abdomen Pelvis W Cont - 04/20/2021 2:20 pm CLINICAL HISTORY: Chest and abdominal pain COMPARISON: None TECHNIQUE: Computed axial tomography of the chest, abdomen and pelvis was obtained. 100 cc Isovue-30 0 was administered intravenously. Oral contrast was not requested. This limits evaluation of bowel. All CT scans are performed using dose optimization technique as appropriate and may include automated exposure control or mA/KV adjustment according to patient size. FINDINGS: The lungs are clear. No mediastinal or hilar lymphadenopathy A pleural effusion is not present. A pericardial effusion is not noted Ray rods and pedicular screws have been placed into the mid and distal thoracic spine and uppe r lumbar spine. Artifact results in limited evaluation of adjacent structures. Mild fatty liver. Spleen, pancreas, adrenals and kidneys appear unremarkable. There is no evidence of diverticulitis. Normal appendix. 3 centimeter left ovarian cyst without significant free fluid. Tiny umbilical hernia IMPRESSION: 3 centimeter left ovarian cyst without significant free fluid.
--- NOTE | 2021-04-20 14:43 | EDPHYS ---
Physician Documentation [facility] Name: Mallory Parra Age: 20 yrs Sex: Female : 2000 Arrival Date: 04/20/2021 Time: 11:05 Bed 13 Private MD: ED Physician Bonita Walters HPI: 04/20 11:39 This 20 yrs old Female presents to ER via Ambulatory with complaints of jmm Vomiting. 11:39 The patient presents to the emergency department with nausea, vomiting, diarrhea. jmm Onset: The symptoms/episode began/occurred gradually, 2 week(s) ago. Possible causes: unknown. The symptoms are aggravated by cough. Associated signs and symptoms: Pertinent positives: abdominal pain, fever, Pertinent negatives: fever. The patient has not experienced similar symptoms in the past. 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 - Social history:: Smoking status: Patient denies any tobacco usage or history of. ROS: 11:39 Constitutional: Positive for fever. jmm 11:39 Respiratory: Positive for cough. 11:39 Abdomen/GI: Positive for nausea and vomiting, diarrhea. 11:39 All other systems are negative. Exam: 11:39 Constitutional: This is a well developed, well nourished patient who is awake, alert, jmm and in no acute distress. Head/Face: atraumatic. Eyes: EOMI, no conjunctival erythema appreciated ENT: Moist Mucus Membranes Neck: Trachea midline, Supple Chest/axilla: Normal chest wall appearance and motion. Cardiovascular: Regular rate and rhythm. No edema appreciated Respiratory: Normal respirations, no respiratory distress appreciated Abdomen/GI: Non distended, soft Back: Normal ROM Skin: General appearance color normal MS/ Extremity: Moves all extremities, no obvious deformities appreciated, no edema noted to the lower extremities Neuro: Awake and alert, normal gait Psych: Behavior is normal, Mood is normal, Patient is cooperative and pleasant Vital Signs: 11:14 BP 122 / 77; Pulse 87; Resp 16; Temp 98.2; Pulse Ox 100% ; Weight 88.45 kg; Height 5 vg1 ft. 1 in. (154.94 cm); Pain 0/10; 15:12 BP 124 / 81; Pulse 85; Resp 16; Pulse Ox 99% ; Pain 0/10; tc5 11:14 Body Mass Index 36.84 (88.45 kg, 154.94 cm) vg1 MDM: 11:33 Patient medically screened. [facility] 14:40 Data reviewed: vital signs, nurses notes. Counseling: I had a detailed discussion with [facility] the patient and/or guardian regarding: the historical points, exam findings, and any diagnostic results supporting the discharge/admit diagnosis, lab results, radiology results, the need for outpatient follow up, to return to the emergency department if symptoms worsen or persist or if there are any questions or concerns that arise at home. 04/20 11:35 Order name: Basic Metabolic Panel [facility] 04/20 11:35 Order name: CBC with Diff [facility] 04/20 11:35 Order name: Hepatic Function [facility] 04/20 11:35 Order name: Lipase [facility] 04/20 11:36 Order name: Basic Metabolic Panel; Complete Time: 12:42 [facility] 04/20 11:36 Order name: CBC with Automated Diff; Complete Time: 12:42 [facility] 04/20 11:35 Order name: IV Saline Lock; Complete Time: 12:02 [facility] 04/20 11:36 Order name: Liver (Hepatic) Function; Complete Time: 12:42 [facility] 04/20 11:36 Order name: Lipase; Complete Time: 12:42 [facility] 04/20 12:37 Order name: Urine --Ancillary (enter results); Complete Time: 12:42 04/20 14:04 Order name: CT Chest, Abdomen, Pelvis - W/Contrast; Complete Time: 14:40 [facility] 04/20 11:35 Order name: Labs collected and sent; Complete Time: 12:02 [facility] 04/20 11:35 Order name: Urine Dipstick-Ancillary (obtain specimen); Complete Time: 11:56 [facility] 04/20 11:35 Order name: Urine Test (obtain specimen); Complete Time: 11:56 [facility] Administered Medications: 12:00 Drug: NS 0.9% 1000 ml Route: IV; Rate: 1 bolus; Site: right antecubital; tc5 15:14 Follow up: IV Status: Completed infusion; IV Intake: 1000ml tc5 12:00 Drug: Zofran (Ondansetron) 4 mg Route: IVP; Site: right antecubital; tc5 15:14 Follow up: Response: No adverse reaction tc5 12:21 Drug: Pepcid (famotidine) 20 mg Route: IVP; Site: right antecubital; tc5 14:59 Follow up: Response: No adverse reaction tc5 Disposition: 18:32 Co-signature as Attending Physician, Bonita Walters MD. ma2 Disposition Summary: 04/20/21 14:41 Discharge Ordered Location: Home [facility] Condition: Stable [facility] Diagnosis - Vomiting [facility] Followup: [facility] - With: Private Physician - When: 2 - 3 days - Reason: Recheck today's complaints, Continuance of care, Re-evaluation by your physician Followup: [facility] - With: Elif Barrera MD - When: 2 - 3 days - Reason: Recheck today's complaints, Continuance of care, Re-evaluation by your physician Discharge Instructions: - Discharge Summary Sheet jmm - Vomiting, Adult jmm Forms: - Medication Reconciliation Form [facility] - Thank You Letter [facility] - Antibiotic Education m - Prescription Opioid Use [facility] - Work release form tc5 Signatures: Dispatcher [employer] Brent Massey PA PA jmm Alzahri, Mohammad, MD MD ma2 Shelby Lorenz, RN RN vg1 Makenzie Luis, RN RN tc5
--- NOTE | 2021-04-20 14:43 | ER ---
Nurse's Notes [facility] Name: Mallory Parra Age: 20 yrs Sex: Female : 2000 Arrival Date: 04/20/2021 Time: 11:05 Bed 13 Private MD: Diagnosis: Vomiting Presentation: 04/20 11:14 Chief complaint: Patient states: Since 04/09/21, patient states has been vomiting vg1 intermittently. Has seen Guillaume Iqbal at Dr Sims office and was told had 'acid reflux'. Pt is currently taking Zofran, Dicyclomine, and Omeprazole. States has been constipated and will have diarrhea at times as well. Denies ABD pain at this time. Coronavirus screen: Vaccine status: Patient reports receiving the 2nd dose of the covid vaccine. Ebola Screen: Patient negative for fever greater than or equal to 101.5 degrees Fahrenheit, and additional compatible Ebola Virus Disease symptoms. Initial Sepsis Screen: Does the patient meet any 2 criteria? No. Patient's initial sepsis screen is negative. Does the patient have a suspected source of infection? No. Patient's initial sepsis screen is negative. Risk Assessment: Do you want to hurt yourself or someone else? Patient reports no desire to harm self or others. Onset of symptoms was April 09, 2021. 11:14 Method Of Arrival: Ambulatory vg1 11:14 Acuity: YOEL 3 vg1 Triage Assessment: 11:18 General: Appears in no apparent distress. comfortable, Behavior is calm, cooperative. vg1 Pain: Denies pain. GI: Reports constipation, diarrhea, nausea, vomiting. 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 - Social history:: Smoking status: Patient denies any tobacco usage or history of. Screenin:12 Abuse screen: Denies threats or abuse. Denies injuries from another. Nutritional tc5 screening: No deficits noted. Tuberculosis screening: No symptoms or risk factors identified. Fall Risk None identified. Assessment: 15:11 GI: Reports lower abdominal pain, nausea, needs work note to return to [employer]. tc5 15:13 GI: tc5 Vital Signs: 11:14 BP 122 / 77; Pulse 87; Resp 16; Temp 98.2; Pulse Ox 100% ; Weight 88.45 kg; Height 5 vg1 ft. 1 in. (154.94 cm); Pain 0/10; 15:12 BP 124 / 81; Pulse 85; Resp 16; Pulse Ox 99% ; Pain 0/10; tc5 11:14 Body Mass Index 36.84 (88.45 kg, 154.94 cm) vg1 ED Course: 11:05 Patient arrived in ED. ds1 11:13 Brent Kaminski PA is PHCP. [facility] 11:13 Bonita Walters MD is Attending Physician. [facility] 11:18 Triage completed. vg1 11:18 Arm band placed on. vg1 11:26 Makenzei Luis, RN is Primary Nurse. tc5 11:56 Patient has correct armband on for positive identification. Placed in gown. Bed in low mh5 position. Call light in reach. Side rails up X 1. Warm blanket given. Pulse ox on. NIBP on. 11:57 Urine collected: clean catch specimen, cloudy. mh5 11:57 by ED staff, sent to lab. 5 12:02 Lipase Sent. mh5 12:02 Hepatic Function Sent. 5 12:02 CBC with Diff Sent. mh5 12:02 Basic Metabolic Panel Sent. mh5 12:02 Liver (Hepatic) Function Sent. mh5 12:02 CBC with Automated Diff Sent. 5 12:02 Basic Metabolic Panel Sent. mh5 12:02 Lipase Sent. 5 14:20 CT Chest, Abdomen, Pelvis - W/Contrast In Process Unspecified. EDMS 14:46 Elif Barrera MD is Referral Physician. m 15:12 Inserted saline lock: 20 gauge in right antecubital area, using aseptic technique. tc5 Blood collected. 15:13 No provider procedures requiring assistance completed. IV discontinued, intact, tc5 bleeding controlled, No redness/swelling at site. Pressure dressing applied. Administered Medications: 12:00 Drug: NS 0.9% 1000 ml Route: IV; Rate: 1 bolus; Site: right antecubital; tc5 15:14 Follow up: IV Status: Completed infusion; IV Intake: 1000ml tc5 12:00 Drug: Zofran (Ondansetron) 4 mg Route: IVP; Site: right antecubital; tc5 15:14 Follow up: Response: No adverse reaction tc5 12:21 Drug: Pepcid (famotidine) 20 mg Route: IVP; Site: right antecubital; tc5 14:59 Follow up: Response: No adverse reaction tc5 Intake: 15:14 IV: 1000ml; Total: 1000ml. tc5 Outcome: 14:41 Discharge ordered by MD. pizarro 15:13 Discharged to home ambulatory, with family. tc5 15:13 Condition: stable 15:13 Discharge instructions given to patient. 15:14 Patient left the ED. tc5 Signatures: Dispatcher [employer] EDMS Brent Kaminski PA PA jmm Sanford, Demi ds1 Martinez, Maria mh5 Garcia, Victoria, RN RN vg1 Makenzie Luis RN RN tc5
[2021-04-20 15:23] VITALS: TEMP 98.2
[2021-04-20 15:24] VITALS: BP 124/81; O2SAT 99
== END 2021-04-20 15:14 | disposition home or self-care (01) ==
LOC: ER 11:03
DX: R11.10 Vomiting, unspecified (principal); F32.A Depression, unspecified; F90.9 Attention-deficit hyperactivity disorder, unspecified type
CPT/HCPCS: 36415; 71260; 74177; 80048; 80076; 81025; 83690; 85025; J2405; J7030; Q9967

== ENCOUNTER → 2023-08-15 | Emergency (ER) | payer SELFPAY ==
--- OUTSIDE RECORDS SUMMARY | 2023-08-15 11:02 | XMS REPORT | Continuity of Care Document ---
Author Name Unknown Address [address] [place], [place] [address]ect Address [address] [place] [address] [address] [place] [address] Care Team Providers Care Nylon Winder Name Role Phone [email or web address] Attending Clinician Unavaila ble [email or web address] Admitting Clinician Unavaila ble Encounters Start Date/Time End Date/Time Encounter Type Admission Type Attending Clinicians Care Facility Care Department Encounter ID Source 2023-05-03 00:00:00 2023-05-03 00:00:00 Outpatient [email or web address] [facility] [id number] [facility]
--- NOTE | 2023-08-15 11:20 | EDPHYS ---
Physician Documentation [facility] Name: Mallory Parra Age: 23 yrs Sex: Female : 2000 Arrival Date: 08/15/2023 Time: 10:59 Bed 11 Private MD: ED Physician Tuan Waer HPI: 08/15 11:29 This 23 yrs old Female presents to ER via Ambulatory with complaints of Suture Removal. rt 11:29 Patient presents to the ED requesting suture removal. Patient was in [place], had a rt fall, hitting her lower lip. She had 4 sutures placed. Denies any issues with sutures. Denies any acute complaints, symptoms are moderate severity, no other aggravating or elevating factors.. Historical: - Allergies: 11:05 No Known Allergies; mb9 - PMHx: 11:05 ADD/ADHD; scoliosis; Depression; Bronchitis; mb9 - PSHx: 11:05 Spinal Fusion; Cholecystectomy; mb9 - Immunization history:: Adult Immunizations up to date. - Social history:: Smoking status: Patient denies any tobacco usage or history of. ROS: 11:29 Constitutional: Negative for fever, chills, and weight loss, Cardiovascular: Negative rt for chest pain, palpitations, and edema, Respiratory: Negative for shortness of breath, cough, wheezing, and pleuritic chest pain, Abdomen/GI: Negative for abdominal pain, nausea, vomiting, diarrhea, and constipation, Neuro: Negative for headache, weakness, numbness, tingling, and seizure, 11:29 Skin: Positive for laceration(s), Negative for erythema, Exam: 11:29 Constitutional: This is a well developed, well nourished patient who is awake, alert, rt and in no acute distress. Head/Face: Normocephalic, atraumatic. Chest/axilla: Normal chest wall appearance and motion. Nontender with no deformity. No lesions are appreciated. Cardiovascular: Regular rate and rhythm with a normal S1 and S2. No gallops, murmurs, or rubs. Normal PMI, no JVD. No pulse deficits. Respiratory: Lungs have equal breath sounds bilaterally, clear to auscultation and percussion. No rales, rhonchi or wheezes noted. No increased work of breathing, no retractions or nasal flaring. Abdomen/GI: Soft, non-tender, with normal bowel sounds. No distension or tympany. No guarding or rebound. No evidence of tenderness throughout. 11:29 ENT: Well-healed laceration with scabbing to the lower lip, 4 sutures noted.. Vital Signs: 11:06 BP 126 / 84; Pulse 80; Resp 16; Temp 98; Pulse Ox 100% ; Weight 65.77 kg; Height 5 ft. mb9 0 in. ; Pain 0/10; 11:06 Body Mass Index 28.32 (65.77 kg, 152.4 cm) mb9 11:06 Pain Scale: Adult mb9 Procedures: 11:29 Suture/Staple removal: Removed 4 sutures, from lower lip, site appears well healed, rt dressed with Patient tolerated well. MDM: 11:12 Patient medically screened. rt 11:29 Data reviewed: vital signs, nurses notes. Counseling: I had a detailed discussion with rt the patient and/or guardian regarding the historical points, exam findings, and any diagnostic results supporting the discharge/admit diagnosis, the need for outpatient follow up. Response to treatment: the patient's symptoms have resolved after treatment. Administered Medications: No medications were administered Disposition Summary: 08/15/23 11:19 Discharge Ordered Notes: Location: Home rt Problem: new rt Symptoms: have improved rt Condition: Stable rt Diagnosis - Encounter for removal of sutures rt Followup: rt - With: Private Physician - When: 2 - 3 days - Reason: Discharge Instructions: - Discharge Summary Sheet rt - Suture Removal, Care After rt Forms: - Medication Reconciliation Form rt - Thank You Letter rt - Antibiotic Education rt - Prescription Opioid Use rt - Patient Portal Instructions rt - Leadership Thank You Letter rt Signatures: Rosalie Dejesus RN RN mb9 Tuan Ware MD MD rt
--- NOTE | 2023-08-15 11:20 | ER ---
Nurse's Notes [facility] Name: Mallory Parra Age: 23 yrs Sex: Female : 2000 Arrival Date: 08/15/2023 Time: 10:59 Bed 11 Private MD: Diagnosis: Encounter for removal of sutures Presentation: 08/15 11:06 Chief complaint: Patient states: "I need to get the sutures removed from my lip that mb9 were placed 5 days ago.". Coronavirus screen: Vaccine status: Patient reports receiving the 2nd dose of the covid vaccine. Ebola Screen: No symptoms or risks identified at this time. Initial Sepsis Screen: Does the patient meet any 2 criteria? No. Patient's initial sepsis screen is negative. Does the patient have a suspected source of infection? No. Patient's initial sepsis screen is negative. Risk Assessment: Do you want to hurt yourself or someone else? Patient reports no desire to harm self or others. Onset of symptoms was August 15, 2023. 11:06 Method Of Arrival: Ambulatory mb9 11:06 Acuity: YOEL 4 mb9 Triage Assessment: 11:07 General: Appears in no apparent distress. Behavior is calm, cooperative. Pain: Denies mb9 pain. EENT: No signs and/or symptoms were reported regarding the EENT system. Neuro: Level of Consciousness is awake, alert, obeys commands, Oriented to person, place, time, situation, Appropriate for age. Cardiovascular: Patient's skin is warm and dry. Respiratory: Airway is patent Respiratory effort is even, unlabored, Respiratory pattern is regular, symmetrical. GI: No signs and/or symptoms were reported involving the gastrointestinal system. : No signs and/or symptoms were reported regarding the genitourinary system. Derm: Skin is pink, warm \\T\\ dry. sutures noted to lip. Musculoskeletal: Range of motion: intact in all extremities. Historical: - Allergies: 11:05 No Known Allergies; mb9 - PMHx: 11:05 ADD/ADHD; scoliosis; Depression; Bronchitis; mb9 - PSHx: 11:05 Spinal Fusion; Cholecystectomy; mb9 - Immunization history:: Adult Immunizations up to date. - Social history:: Smoking status: Patient denies any tobacco usage or history of. Screenin:07 [facility] ED Fall Risk Assessment (Adult) History of falling in the last 3 months, mb9 including since admission No falls in past 3 months (0 pts) Confusion or Disorientation No (0 pts) Intoxicated or Sedated No (0 pts) Impaired Gait No (0 pts) Mobility Assist Device Used No (0 pt) Altered Elimination No (0 pt) Score/Fall Risk Level 0 - 2 = Low Risk Oriented to surroundings, Maintained a safe environment, Educated pt \\T\\ family on fall prevention, incl call for assistance when getting out of bed. Abuse screen: Denies threats or abuse. Nutritional screening: No deficits noted. Tuberculosis screening: No symptoms or risk factors identified. Assessment: 11:27 Reassessment: No changes from previously documented assessment. Patient and/or family mb9 updated on plan of care and expected duration. Pain level reassessed. Patient is alert, oriented x 3, equal unlabored respirations, skin warm/dry/pink. Vital Signs: 11:06 BP 126 / 84; Pulse 80; Resp 16; Temp 98; Pulse Ox 100% ; Weight 65.77 kg; Height 5 ft. mb9 0 in. ; Pain 0/10; 11:06 Body Mass Index 28.32 (65.77 kg, 152.4 cm) mb9 11:06 Pain Scale: Adult mb9 ED Course: 11:02 Patient arrived in ED. im 11:02 Tuan Ware MD is Attending Physician. rt 11:05 Arm band placed on. mb9 11:07 Triage completed. mb9 11:07 Bed in low position. Call light in reach. Side rails up X 1. Client placed on mb9 continuous cardiac and pulse oximetry monitoring. NIBP monitoring applied. 11:08 Rosalie Dejesus RN is Primary Nurse. mb9 11:08 Patient did not have IV access during this emergency room visit. mb9 11:27 No provider procedures requiring assistance completed. mb9 Administered Medications: No medications were administered Medication: : VIS not applicable for this client. mb9 Outcome: 11:19 Discharge ordered by . rt 11: Discharged to home ambulatory, mb9 11: Condition: stable 11:27 Discharge instructions given to patient, Instructed on discharge instructions, follow up and referral plans. Demonstrated understanding of instructions, follow-up care, 11:27 Patient left the ED. mb9 Signatures: Rosalie Dejesus RN RN mb9 Tuan Ware MD MD rt Ashley Desir im
[2023-08-15 11:39] VITALS: BP 126/84; TEMP 98; O2SAT 100
== END ==
LOC: ER 10:59
DX: Z48.02 Encounter for removal of sutures (principal)

== ENCOUNTER → 2023-09-21 | Emergency (ER) | payer OTHER, SELFPAY ==
[~2023-09-21] MED LIST: FAMOTIDINE 20 MG/2 ML VIAL IV ONE; HALOPERIDOL LACT 5 MG/ML INJ ONE; KETOROLAC 30 MG/ML INJ ONE; MORPHINE 4 MG/ML SYR ONE; NA CHLORIDE 0.9% 1,000 ML ONE; ONDANSETRON 4 MG/2 ML VIAL ONE
--- OUTSIDE RECORDS SUMMARY | 2023-09-21 22:36 | XMS REPORT | Continuity of Care Document ---
Author Name Unknown Address [address] [place], [place] [address]ect Address [address] [place] [address] [address] [place] [address] Care Team Providers Care Tugboat Captain Name Role Phone [email or web address] Attending Clinician Unavaila ble [email or web address] Admitting Clinician Unavaila ble Encounters Start Date/Time End Date/Time Encounter Type Admission Type Attending Clinicians Care Facility Care Department Encounter ID Source 2023-05-03 00:00:00 2023-05-03 00:00:00 Outpatient [email or web address] [facility] [id number] [facility]
[2023-09-21 23:17] LABS: Absolute Basophils 0.1 K/uL (0-0.5); Absolute Eosinophils 0.1 K/uL (0-0.5); Absolute Lymphocytes (CBC) 1.4 K/uL (0.7-4.9); Absolute Monocytes 0.9 K/uL (0.1-1.3); Absolute Neutrophil 11.7 K/uL (1.8-8.0); Basophils % 0.5 % (0-1.3); Eosinophils % 0.4 % (0-4.4); Hematocrit 41.4 % (36.0-45.0); MCH 30.7 pg (27.0-35.0); MCHC 33.8 g/dL (32.0-36.0); MCV 90.7 fL (80-100); MPV 7.2 fL (7.6-11.3); Monocytes % 6.1 % (3.3-12.3); Nucleated Red Blood Cells % 0.3 % (0-0); Platelets 314 thou/uL (152-406); RBC Red Blood Cell Count 4.57 M/uL (3.86-4.86); Red Cell Distribution Width 12.1 % (12.1-15.2)
[2023-09-21 23:37] LABS: ALT/SGPT 81 U/L (13-56); AST/SGOT 21 U/L (15-37); Albumin/Globulin Ratio 1.1 (1.1-1.8); Alkaline Phosphatase 53 U/L (45-117); Anion Gap 11.2 mEq/L (5.0-15.0); BUN Blood Urea Nitrogen 10 mg/dL (7-18); Bicarbonate 23 mEq/L (21-32); Bilirubin Total 0.6 mg/dL (0.2-1.0); Globulin 3.7 g/dL (2.3-3.5); Glomerular Filtration Rate 86 ml/min (=/>90); Glucose Level 117 mg/dL (74-106); Lipase 29 U/L (13-75); Potassium 3.2 mEq/L (3.5-5.1); Protein, Total 7.7 g/dL (6.4-8.2); Sodium Level 138 mEq/L (136-145)
[2023-09-21 23:39] LABS: C-Reactive Protein < 2.90 mg/L (<3.00)
--- NOTE | 2023-09-22 00:29 | ER ---
Nurse's Notes [facility] Name: Mallory Parra Age: 23 yrs Sex: Female : 2000 Arrival Date: 09/21/2023 Time: 22:33 Bed 4 Private MD: Diagnosis: Abdominal pain, Generalized;Nausea with vomiting, unspecified Presentation: 09/20 22:35 Chief complaint: EMS states: Severe abdominal pain started at 1930. vc1 22:35 Coronavirus screen: Vaccine status: Patient reports receiving the 2nd dose of the covid vc1 vaccine. Client denies travel out of the [place] in the last 14 days. At this time, the client does not indicate any symptoms associated with coronavirus-19. Ebola Screen: Patient negative for fever greater than or equal to 101.5 degrees Fahrenheit, and additional compatible Ebola Virus Disease symptoms Patient denies exposure to infectious person. Patient denies travel to an Ebola-affected area in the 21 days before illness onset. No symptoms or risks identified at this time. Initial Sepsis Screen: Does the patient meet any 2 criteria? No. Patient's initial sepsis screen is negative. Does the patient have a suspected source of infection? No. Patient's initial sepsis screen is negative. Risk Assessment: Do you want to hurt yourself or someone else? Patient reports no desire to harm self or others. Onset of symptoms was September 21, 2023 at 19:30. 22:35 Method Of Arrival: EMS: [facility] vc1 22:35 Acuity: YOEL 3 vc1 Triage Assessment: 22:51 General: Appears distressed, uncomfortable, Behavior is calm, cooperative, appropriate vc1 for age. Pain: Complains of pain in right lower quadrant and left lower quadrant Pain does not radiate. Pain currently is 9 out of 10 on a pain scale. Quality of pain is described as sharp, Pain began suddenly, 3 hours ago. Is intermittent, Also complains of nausea, vomiting diarrhea. EENT: No deficits noted. No signs and/or symptoms were reported regarding the EENT system. Neuro: Level of Consciousness is awake, alert, obeys commands, Oriented to person, place, time, situation, Appropriate for age. Cardiovascular: No deficits noted. Respiratory: Airway is patent Respiratory effort is Respiratory pattern is Breath sounds are clear. GI: Abdomen is round non-distended, Abd is soft Abdomen is tender to palpation in suprapubic area and right lower quadrant Reports lower abdominal pain, diarrhea, nausea, vomiting. : No deficits noted. No signs and/or symptoms were reported regarding the genitourinary system. Derm: No deficits noted. No signs and/or symptoms reported regarding the dermatologic system. Musculoskeletal: No deficits noted. No signs and/or symptoms reported regarding the musculoskeletal system. 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 - Social history:: Smoking status: Patient denies any tobacco usage or history of. quit vaping. - Family history:: not pertinent. Screenin:48 [facility] ED Fall Risk Assessment (Adult) History of falling in the last 3 months, vc1 including since admission No falls in past 3 months (0 pts) Confusion or Disorientation No (0 pts) Intoxicated or Sedated No (0 pts) Impaired Gait No (0 pts) Mobility Assist Device Used No (0 pt) Altered Elimination No (0 pt) Score/Fall Risk Level 0 - 2 = Low Risk Oriented to surroundings, Maintained a safe environment, Educated pt \T\ family on fall prevention, incl call for assistance when getting out of bed. Abuse screen: Denies threats or abuse. Nutritional screening: No deficits noted. Tuberculosis screening: No symptoms or risk factors identified. Assessment: 22:45 General: Appears in no apparent distress. uncomfortable, Behavior is cooperative, jb4 appropriate for age, anxious. Pain: Complains of pain in abdomen Pain does not radiate. Pain currently is 10 out of 10 on a pain scale. Neuro: Level of Consciousness is awake, alert, obeys commands, Oriented to person, place, time, situation. Cardiovascular: Patient's skin is warm and dry. Respiratory: Airway is patent Respiratory effort is even, unlabored, Respiratory pattern is regular, symmetrical. GI: No signs and/or symptoms were reported involving the gastrointestinal system. : No signs and/or symptoms were reported regarding the genitourinary system. EENT: No signs and/or symptoms were reported regarding the EENT system. Derm: Skin is intact. Musculoskeletal: Circulation, motion, and sensation intact. Range of motion: intact in all extremities. 09/21 00:00 Reassessment: Patient appears in no apparent distress at this time. Patient and/or jb4 family updated on plan of care and expected duration. Pain level reassessed. Patient is alert, oriented x 3, equal unlabored respirations, skin warm/dry/pink. Patient states feeling better. 00:45 Reassessment: Patient appears in no apparent distress at this time. Patient and/or jb4 family updated on plan of care and expected duration. Pain level reassessed. Patient is alert, oriented x 3, equal unlabored respirations, skin warm/dry/pink. Vital Signs: 09/20 22:35 BP 137 / 89; Pulse 66; Resp 14; Temp 98.3; Pulse Ox 98% ; vc1 23:30 BP 112 / 90; Pulse 67; Resp 16; Pulse Ox 99% on R/A; jb4 09/21 00:30 BP 151 / 96; Pulse 67; Resp 16; Pulse Ox 96% on R/A; jb4 Anisa Coma Score: 09/20 22:38 Eye Response: spontaneous(4). Motor Response: obeys commands(6). Verbal Response: sp4 oriented(5). Total: 15. ED Course: 22:35 Patient arrived in ED. rv1 22:36 Alek Salmeron MD is Attending Physician. sp4 22:44 Triage completed. vc1 22:48 Arm band placed on right wrist. vc1 22:57 Patient has correct armband on for positive identification. Bed in low position. Call vc1 light in reach. Pulse ox on. NIBP on. 23:05 Initial lab(s) drawn, by me, sent to lab. Inserted saline lock: 18 gauge in right Blood jb4 collected. 23:25 CMP Sent. jb4 23:25 Lipase Sent. jb4 09/21 00:26 Royce Reyes MD is Referral Physician. sp4 00:30 Provided Education on: discharge instructions.. jb4 00:45 No provider procedures requiring assistance completed. IV discontinued, intact, jb4 bleeding controlled, No redness/swelling at site. Pressure dressing applied. Administered Medications: 09/20 22:41 CANCELLED (Physician Discretion): haloperidol2.5 mg/50 ml 2.5 mg IVP once; Place sp4 patient on a sampler tester 23:22 Drug: Famotidine IVP 20 mg IVP once; dilute with 10 mL 0.9% NaCl; give over 2 minutes jb4 Route: IVP; Site: right antecubital; 23:23 Drug: morphine IVP or IV 4 mg IVP once over 4 mins Route: IVP; Infused Over: 4 mins; jb4 Site: right antecubital; 23:24 Drug: TORadol - Ketorolac IVP 15 mg IVP once Route: IVP; Site: right antecubital; jb4 23:25 Drug: NS 0.9% IV 1000 ml IV at 1 bolus Per protocol; 1000 mL bolus Route: IV; Rate: 1 jb4 bolus; Site: right antecubital; 23:25 Drug: Ondansetron IVP 4 mg IVP once; over 2 minutes Route: IVP; Site: right antecubital;jb4 23:38 Drug: Haloperidol IVP 5 mg IVP once {Note: verified medication with pharmacy prior to jb4 administration. Pharmacy report medication on hand is safe to give IV..} Route: IVP; Site: right antecubital; Medication: 22:51 VIS not applicable for this client. vc1 Outcome: 09/21 00:28 Discharge ordered by . sp4 00:45 Discharged to home ambulatory, with family, jb4 00:45 Condition: stable 00:45 Discharge instructions given to patient, Instructed on discharge instructions, follow up and referral plans. Demonstrated understanding of instructions, follow-up care, 00:55 Patient left the ED. jb4 Signatures: Simon Smith RN RN jb4 Gaviota Rudolph RN RN vc1 Janel Field rv1 Alek Salmeron MD MD sp4
--- NOTE | 2023-09-22 00:29 | EDPHYS ---
Physician Documentation [facility] Name: Mallory Parra Age: 23 yrs Sex: Female : 2000 Arrival Date: 09/21/2023 Time: 22:33 Bed 4 Private MD: ED Physician Alek Salmeron HPI: 09/20 22:38 This 23 yrs old Female presents to ER via Unassigned with complaints of Right sp4 abdominal pain, vomiting . 22:38 Patient is a 23-year-old female presents with EMS for moderate to severe right-sided sp4 abdominal pain associated with vomiting and diarrhea. Patient states less than a year ago she had cholecystectomy in [place]. . . Patient took ondansetron 4 mg prior to arrival. Her pain started acutely at 7:30 in the evening.. 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 - Social history:: Smoking status: Patient denies any tobacco usage or history of. quit vaping. - Family history:: not pertinent. ROS: 22:38 Constitutional: Negative for fever, chills, and weight loss, Positive for abdominal sp4 pain , also positive for vomiting and diarrhea 22:38 All other systems are negative, Exam: 22:38 Constitutional: This is a well developed, well nourished patient who is awake, alert, sp4 moderate distress secondary to abdominal pain Head/Face: Normocephalic, atraumatic. Eyes: Pupils equal round and reactive to light, extra-ocular motions intact. Lids and lashes normal. Conjunctiva and sclera are not injected. Cornea within normal limits. Periorbital areas with no swelling, redness, or edema. ENT: Nares patent. No nasal discharge, no septal abnormalities noted. Tympanic membranes are normal and external auditory canals are clear. Oropharynx with no redness, swelling, or masses, exudates, or evidence of obstruction, uvula midline. Mucous membranes moist. Neck: Trachea midline, no thyromegaly or masses palpated, and no cervical lymphadenopathy. Supple, full range of motion without nuchal rigidity, or vertebral point tenderness. Chest/axilla: Normal chest wall appearance and motion. Nontender with no deformity. No lesions are appreciated. Cardiovascular: Regular rate and rhythm with a normal S1 and S2. No gallops, murmurs, or rubs. Normal PMI, no JVD. No pulse deficits. Respiratory: Lungs have equal breath sounds bilaterally, clear to auscultation and percussion. No rales, rhonchi or wheezes noted. No increased work of breathing, no retractions or nasal flaring. Abdomen/GI: Soft, with normal bowel sounds. No distension or tympany. No guarding or rebound, there is right abdominal tenderness to the right upper right lower abdomen. Also some suprapubic tenderness. Back: No spinal tenderness. No costovertebral tenderness. Skin: Warm, dry with normal turgor. Normal color with no rashes, no lesions, and no evidence of cellulitis. MS/ Extremity: Pulses equal, no cyanosis. Neurovascular intact. Full, normal range of motion. Neuro: Awake and alert, GCS 15, oriented to person, place, time, and situation. Cranial nerves II-XII grossly intact. Motor strength 5/5 in all extremities. Sensory grossly intact. Psych: Awake, alert, with orientation to person, place and time. Very upset and tearful. Acute anxiety attack on presentation. Emotional upset. Vital Signs: 22:35 BP 137 / 89; Pulse 66; Resp 14; Temp 98.3; Pulse Ox 98% ; vc1 23:30 BP 112 / 90; Pulse 67; Resp 16; Pulse Ox 99% on R/A; jb4 09/21 00:30 BP 151 / 96; Pulse 67; Resp 16; Pulse Ox 96% on R/A; jb4 [place] Coma Score: 09/20 22:38 Eye Response: spontaneous(4). Motor Response: obeys commands(6). Verbal Response: sp4 oriented(5). Total: 15. MDM: 22:41 Patient medically screened. sp4 09/21 00:33 Differential Diagnosis altered mental status, sepsis, flu, Acute abdominal pain. Data sp4 reviewed: vital signs, nurses notes, EMS record, lab test result(s). Consideration of Admission/Observation Escalation of care including admission/observation considered. ED course: Patient has improved after medications and has decided to decline CAT scan. Patient was explained that she may have significant internal abdominal problem that that require surgical intervention. Patient still declines CT with IV contrast. Patient at this time would like to be released home. 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 Patient has stable vital signs she is deemed appropriate for informed discharge. . 09/20 22:37 Order name: CBC with Diff; Complete Time: 23:38 sp4 09/20 22:37 Order name: CMP; Complete Time: 00: sp4 09/20 22:37 Order name: Lipase; Complete Time: 00: sp4 09/20 22:37 Order name: CRP; Complete Time: 00: sp4 09/20 22:37 Order name: IV Saline Lock; Complete Time: 23:22 sp4 09/20 22:37 Order name: Labs collected and sent; Complete Time: 23:22 sp4 Administered Medications: 09/20 22:41 CANCELLED (Physician Discretion): haloperidol2.5 mg/50 ml 2.5 mg IVP once; Place sp4 patient on a surveillance monitor 23:22 Drug: Famotidine IVP 20 mg IVP once; dilute with 10 mL 0.9% NaCl; give over 2 minutes jb4 Route: IVP; Site: right antecubital; 23:23 Drug: morphine IVP or IV 4 mg IVP once over 4 mins Route: IVP; Infused Over: 4 mins; jb4 Site: right antecubital; 23:24 Drug: TORadol - Ketorolac IVP 15 mg IVP once Route: IVP; Site: right antecubital; jb4 23:25 Drug: NS 0.9% IV 1000 ml IV at 1 bolus Per protocol; 1000 mL bolus Route: IV; Rate: 1 jb4 bolus; Site: right antecubital; 23:25 Drug: Ondansetron IVP 4 mg IVP once; over 2 minutes Route: IVP; Site: right antecubital;jb4 23:38 Drug: Haloperidol IVP 5 mg IVP once {Note: verified medication with pharmacy prior to jb4 administration. Pharmacy report medication on hand is safe to give IV..} Route: IVP; Site: right antecubital; Disposition Summary: 09/22/23 00:28 Discharge Ordered Notes: Location: Home sp4 Problem: new sp4 Symptoms: have improved sp4 Condition: Stable sp4 Diagnosis - Abdominal pain, Generalized sp4 - Nausea with vomiting, unspecified sp4 Followup: sp4 - With: Royce Reyes MD - When: 7 - 10 days - Reason: Recheck today's complaints Discharge Instructions: - Discharge Summary Sheet sp4 - Abdominal Pain, Adult sp4 Forms: - Patient Portal Instructions sp4 Signatures: Dispatcher [employer] EDMS Simon Smith RN RN jb4 Gaviota Rudolph RN RN vc1 Alek Salmeron MD MD sp4 Corrections: (The following items were deleted from the chart) 22:41 22:37 Haloperidol IVP 2.5 mg/50 mL 2.5 mg IVP once; Place patient on a surveillance monitor sp4 ordered. sp4 23:40 22:38 Constitutional: This is a well developed, well nourished patient who is awake, sp4 alert, moderate distress secondary to abdominal pain Head/Face: Normocephalic, atraumatic. Eyes: Pupils equal round and reactive to light, extra-ocular motions intact. Lids and lashes normal. Conjunctiva and sclera are not injected. Cornea within normal limits. Periorbital areas with no swelling, redness, or edema. ENT: Nares patent. No nasal discharge, no septal abnormalities noted. Tympanic membranes are normal and external auditory canals are clear. Oropharynx with no redness, swelling, or masses, exudates, or evidence of obstruction, uvula midline. Mucous membranes moist. Neck: Trachea midline, no thyromegaly or masses palpated, and no cervical lymphadenopathy. Supple, full range of motion without nuchal rigidity, or vertebral point tenderness. Chest/axilla: Normal chest wall appearance and motion. Nontender with no deformity. No lesions are appreciated. Cardiovascular: Regular rate and rhythm with a normal S1 and S2. No gallops, murmurs, or rubs. Normal PMI, no JVD. No pulse deficits. Respiratory: Lungs have equal breath sounds bilaterally, clear to auscultation and percussion. No rales, rhonchi or wheezes noted. No increased work of breathing, no retractions or nasal flaring. Abdomen/GI: Soft, with normal bowel sounds. No distension or tympany. No guarding or rebound, there is right abdominal tenderness to the right upper right lower abdomen. Also some suprapubic tenderness. Back: No spinal tenderness. No costovertebral tenderness. Skin: Warm, dry with normal turgor. Normal color with no rashes, no lesions, and no evidence of cellulitis. MS/ Extremity: Pulses equal, no cyanosis. Neurovascular intact. Full, normal range of motion. Neuro: Awake and alert, GCS 15, oriented to person, place, time, and situation. Cranial nerves II-XII grossly intact. Motor strength 5/5 in all extremities. Sensory grossly intact. Psych: Awake, alert, with orientation to person, place and time. Behavior, mood, and affect are within normal limits sp4 09/21 00:35 09/20 22:37 Abdomen Pelvis W Con+CT.RAD.BRZ ordered. EDMS EDMS
[2023-09-22 01:25] VITALS: BP 137/89; TEMP 98.3; O2SAT 98
== END ==
LOC: ER 22:33
DX: R10.84 Generalized abdominal pain (principal); R11.2 Nausea with vomiting, unspecified
CPT/HCPCS: 36415; 80053; 83690; 85025; 86140; 96374; 96375; 99284; J1630; J2405; J7030

== ENCOUNTER → 2023-09-24 | Emergency (ER) | payer OTHER, SELFPAY ==
[~2023-09-24] MED LIST changes: -FAMOTIDINE 20 MG/2 ML VIAL IV ONE; -HALOPERIDOL LACT 5 MG/ML INJ ONE; -MORPHINE 4 MG/ML SYR ONE; +POTASSIUM CL SA 10 MEQ TAB PO ONE
--- OUTSIDE RECORDS SUMMARY | 2023-09-24 12:07 | XMS REPORT | Continuity of Care Document ---
Author Name Unknown Address [address] [place], [place] [address]ect Address [address] [place] [id number] Care Team Providers Care Temporary Receptionist Name Role Phone [email or web address] Attending Clinician Unavaila ble [email or web address] Admitting Clinician Unavaila ble Encounters Start Date/Time End Date/Time Encounter Type Admission Type Attending Clinicians Care Facility Care Department Encounter ID Source 2023-05-03 00:00:00 2023-05-03 00:00:00 Outpatient [email or web address] [facility] [id number] [facility]
[2023-09-24 12:27] LABS: Absolute Lymphocytes (CBC) 1.2 K/uL (0.7-4.9); Absolute Monocytes 0.8 K/uL (0.1-1.3); Basophils % 0.3 % (0-1.3); MPV 7.6 fL (7.6-11.3)
[2023-09-24 12:33] LABS: Absolute Neutrophil 10.9 K/uL (1.8-8.0); Hematocrit 41.2 % (36.0-45.0); Lymphocytes % 9.4 % (15.3-44.8); MCH 30.7 pg (27.0-35.0); MCV 90.3 fL (80-100); Monocytes % 6.5 % (3.3-12.3); Neutrophils % 83.8 % (41.7-73.7); Platelets 281 thou/uL (152-406); RBC Red Blood Cell Count 4.57 M/uL (3.86-4.86); Red Cell Distribution Width 12.4 % (12.1-15.2)
[2023-09-24 12:45] LABS: Albumin/Globulin Ratio 1.1 (1.1-1.8); Anion Gap 14.2 mEq/L (5.0-15.0); Bilirubin Total 0.7 mg/dL (0.2-1.0); Globulin 3.6 g/dL (2.3-3.5); Potassium 3.2 mEq/L (3.5-5.1); Protein, Total 7.6 g/dL (6.4-8.2)
[2023-09-24 13:01] LABS: Specific Gravity 1.025 (1.005-1.030)
[2023-09-24 13:02] LABS: Specific Gravity 1.025 (1.005-1.030); Sqamous Epithelial 20-50 /HPF (None Seen); Urine Bacteria <20 /HPF (<20); Urine Bilirubin NEGATIVE (Negative); Urine Blood Negative (Negative); Urine Clarity Extremely Turbid (Clear); Urine Color Yellow (Yellow); Urine Culture Reflex Order NOT NEEDED; Urine Glucose NEGATIVE (Negative); Urine Ketones 3+ (Negative); Urine Microscopic Reflex YN ORDER UMIC; Urine Mucus 4+ /HPF (None Seen); Urine Nitrite NEGATIVE (Negative); Urine Protein 1+ (Negative); Urine RBC <5 /HPF (None Seen); Urine Urobilinogen Normal (Normal); Urine WBC <5 /HPF (<5)
--- NOTE | 2023-09-24 13:34 | RAD REPORT ---
EXAM DESCRIPTION: CTAbdomen Pelvis W Contrast - 09/24/2023 1:27 pm CLINICAL HISTORY: Abdominal pain. ABD PAIN COMPARISON: No comparisons TECHNIQUE: Biphasic CT imaging of the abdomen and pelvis was performed with 100 ml non-ionic IV cont rast. All CT scans are performed using dose optimization technique as appropriate and may include automated exposure control or mA/KV adjustment according to patient size. FINDINGS: The lung bases are clear.Cholecystectomy clips. The liver, spleen, pancreas, adrenal glands and kidneys are within normal limits. No bowel obstruction, free air, free fluid or abscess. The appendix is normal. No evidence of signi ficant lymphadenopathy. No suspicious bony findings. Thoracic spine hardware. IMPRESSION: No acute intra-abdominal or pelvic finding.
--- NOTE | 2023-09-24 13:57 | EDPHYS ---
Physician Documentation [facility] Name: Mallory Parra Age: 23 yrs Sex: Female : 2000 Arrival Date: 09/24/2023 Time: 12:04 Bed 4 Private MD: KRISTIN Physician Claudio Riddle HPI: 09/23 13:55 This 23 yrs old Female presents to ER via Ambulatory with complaints of Abdominal Pain. kb 13:55 Pt is a 23 year old female who presents with upper abd pain that started 3 days ago. Pt kb was seen here, but refused CT scan at the time. was seen at [facility] yesterday and diagnosed with diverticulitis, prescribed cipro, flagyl, sucralfate, and pepcid. Comes in today for worsening pain. 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 - Social history:: Smoking status: Patient denies any tobacco usage or history of. ROS: 13:54 Constitutional: As per HPI kb Exam: 13:54 Constitutional: This is a well developed, well nourished patient who is awake, alert, kb and in no acute distress. Head/Face: Normocephalic, atraumatic. ENT: Moist Mucous membranes Cardiovascular: Regular rate Respiratory: Respirations even and unlabored. No increased work of breathing. Talking in full sentences Skin: Warm, dry with normal turgor. Normal color. MS/ Extremity: Pulses equal, no cyanosis. Neurovascular intact. Full, normal range of motion. Neuro: Awake and alert, GCS 15, oriented to person, place, time, and situation. Moves all extremities. Normal gait. 13:54 Abdomen/GI: Inspection: abdomen appears normal, Bowel sounds: normal, Palpation: soft, in all quadrants, mild abdominal tenderness, in the right upper quadrant, Vital Signs: 12:10 BP 126 / 95; Pulse 66; Resp 18; Temp 98.2(TE); Pulse Ox 100% ; Weight 65.77 kg; Height nj1 5 ft. 0 in. ; Pain 10/10; 13:40 BP 126 / 66; Pulse 66; Resp 16; Pulse Ox 100% on R/A; Pain 7/10; iw 12:10 Body Mass Index 28.32 (65.77 kg, 152.4 cm) nj1 12:10 Pain Scale: Adult nj1 13:40 Pain Scale: Adult iw MDM: 12:09 Patient medically screened. kb 13:54 Differential diagnosis: diverticulitis, gastritis, gastroesophageal reflux disease, kb pancreatitis, Peptic Ulcer Disease. Data reviewed: vital signs, nurses notes. Historians other than the Patient: Parent: mother. 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 13:57 Response to treatment: the patient's symptoms have markedly improved after treatment. kb 09/23 12:09 Order name: CBC with Diff; Complete Time: 12:48 kb 09/23 12:09 Order name: CMP; Complete Time: 12:48 kb 09/23 12:09 Order name: Lipase; Complete Time: 12:48 kb 09/23 12:09 Order name: Test, Urine; Complete Time: 13:09 kb 09/23 12:09 Order name: Urinalysis w/ reflexes; Complete Time: 13:09 kb 09/23 12:09 Order name: CT Abd/Pelvis - IV Contrast Only; Complete Time: 13:42 kb 09/23 12:09 Order name: IV Saline Lock; Complete Time: 12:24 kb 09/23 12:09 Order name: Labs collected and sent; Complete Time: 12:24 kb Administered Medications: 12:24 Drug: NS 0.9% IV 1000 ml IV at 1 bolus Per protocol; 1000 mL bolus Route: IV; Rate: 1 jp5 bolus; Site: right antecubital; 13:30 Follow up: IV Status: Completed infusion iw 12:24 Drug: TORadol - Ketorolac IVP 15 mg IVP once Route: IVP; Site: right antecubital; jp5 13:00 Follow up: Response: No adverse reaction iw 12:24 Drug: Ondansetron IVP 4 mg IVP once; over 2 minutes Route: IVP; Site: right antecubital;jp5 13:00 Follow up: Response: No adverse reaction iw 14:19 Drug: Potassium Chloride PO 40 mEq PO once Route: PO; jp5 14:35 Follow up: Response: No adverse reaction iw Disposition Summary: 09/24/23 13:57 Discharge Ordered Notes: Location: Home kb Condition: Stable kb Diagnosis - Upper abdominal pain, unspecified kb Followup: kb - With: Emergency Department - When: As needed - Reason: Worsening of condition Followup: kb - With: Private Physician - When: 2 - 3 days - Reason: Recheck today's complaints, Continuance of care, Re-evaluation by your physician Discharge Instructions: - Discharge Summary Sheet kb - Abdominal Pain, Adult, [id number] kb Forms: - Medication Reconciliation Form kb - Thank You Letter kb - Antibiotic Education kb - Prescription Opioid Use kb - Patient Portal Instructions kb - Leadership Thank You Letter kb Signatures: Dispatcher [employer] Meagan Buenrostro, ANGEL-C ANGEL-Magda Lawton, RN RN nj1 Jolie Gallegos RN RN jp5 Cece Burns RN iw
--- NOTE | 2023-09-24 13:57 | ER ---
Nurse's Notes [facility] Name: Mallory Parra Age: 23 yrs Sex: Female : 2000 Arrival Date: 09/24/2023 Time: 12:04 Bed 4 Private MD: Diagnosis: Upper abdominal pain, unspecified Presentation: 09/23 12:10 Chief complaint: Patient states: Abdominal pain for the past 3 days, getting worse. nj1 Seen at [place] yesterday, dx with diverticulitis. Coronavirus screen: Vaccine status: Patient reports receiving the 2nd dose of the covid vaccine. Ebola Screen: Patient denies travel to an Ebola-affected area in the 21 days before illness onset. Initial Sepsis Screen: Does the patient meet any 2 criteria? No. Patient's initial sepsis screen is negative. Does the patient have a suspected source of infection? No. Patient's initial sepsis screen is negative. Risk Assessment: Do you want to hurt yourself or someone else? Patient reports no desire to harm self or others. Onset of symptoms was September 21, 2023. 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 - Social history:: Smoking status: Patient denies any tobacco usage or history of. Screenin:30 [facility] ED Fall Risk Assessment (Adult) History of falling in the last 3 months, jp5 including since admission No falls in past 3 months (0 pts) Confusion or Disorientation No (0 pts) Intoxicated or Sedated No (0 pts) Impaired Gait No (0 pts) Mobility Assist Device Used No (0 pt) Altered Elimination No (0 pt) Score/Fall Risk Level 0 - 2 = Low Risk Oriented to surroundings, Maintained a safe environment, Educated pt \T\ family on fall prevention, incl call for assistance when getting out of bed, Hourly rounding (assess needs \T\ fall precautionary measures) done. Abuse screen: Denies threats or abuse. Denies injuries from another. Nutritional screening: Has had N/V for 3 or more days. Tuberculosis screening: No symptoms or risk factors identified. Assessment: 12:27 General: Appears distressed, uncomfortable, Behavior is cooperative, restless. Pain: jp5 Complains of pain in abdomen. Pain: Pain currently is 10 out of 10 on a pain scale. Pain began 2-3 days ago. Is continuous. Neuro: Level of Consciousness is awake, alert, obeys commands, Oriented to person, place, time, situation, Appropriate for age. Cardiovascular: Capillary refill < 3 seconds fingers. Respiratory: Airway is patent Respiratory effort is even, unlabored, Respiratory pattern is regular. GI: Abdomen is non-distended, Reports diarrhea, intolerance of fluids, intolerance of food, nausea, vomiting. Derm: Skin is intact, Skin is dry, Skin is pink, warm \T\ dry. Skin temperature is warm. 12:37 GI: Bowel sounds present X 4 quads. Abd is soft X 4 quads. jp5 13:40 Reassessment: Patient appears in no apparent distress at this time. Patient and/or iw family updated on plan of care and expected duration. Pain level reassessed. pain 7/10 Patient states feeling better. Vital Signs: 12:10 BP 126 / 95; Pulse 66; Resp 18; Temp 98.2(TE); Pulse Ox 100% ; Weight 65.77 kg; Height nj1 5 ft. 0 in. ; Pain 10/10; 13:40 BP 126 / 66; Pulse 66; Resp 16; Pulse Ox 100% on R/A; Pain 7/10; iw 12:10 Body Mass Index 28.32 (65.77 kg, 152.4 cm) nj1 12:10 Pain Scale: Adult nj1 13:40 Pain Scale: Adult iw ED Course: 12:05 Patient arrived in ED. mr 12:09 Meagan Brody FNP-C is PHCP. kb 12:09 Claudio Riddle MD is Attending Physician. kb 12:13 Triage completed. nj1 12:13 Arm band placed on left wrist. nj1 12:24 CBC with Diff Sent. jp5 12:25 Bed in low position. Call light in reach. Side rails up X 1. Provided Education on: jp5 time for lab results and call light use.. Client placed on continuous cardiac and pulse oximetry monitoring. NIBP monitoring applied. Pulse ox on. 12:25 CMP Sent. jp5 12:25 Lipase Sent. jp5 12:25 Initial lab(s) drawn, by ED staff, sent to lab. Inserted saline lock: 22 gauge in right jp5 antecubital area, using aseptic technique. 12:34 Cece Burns, RN is Primary Nurse. iw 12:37 No provider procedures requiring assistance completed. jp5 13:[address] hb 13:29 CT Abd/Pelvis - IV Contrast Only In Process Unspecified. EDMS 14:20 IV discontinued, intact, bleeding controlled, No redness/swelling at site. Pressure jp5 dressing applied. Administered Medications: 12:24 Drug: NS 0.9% IV 1000 ml IV at 1 bolus Per protocol; 1000 mL bolus Route: IV; Rate: 1 jp5 bolus; Site: right antecubital; 13:30 Follow up: IV Status: Completed infusion iw 12:24 Drug: TORadol - Ketorolac IVP 15 mg IVP once Route: IVP; Site: right antecubital; jp5 13:00 Follow up: Response: No adverse reaction iw 12:24 Drug: Ondansetron IVP 4 mg IVP once; over 2 minutes Route: IVP; Site: right antecubital;jp5 13:00 Follow up: Response: No adverse reaction iw 14:19 Drug: Potassium Chloride PO 40 mEq PO once Route: PO; jp5 14:35 Follow up: Response: No adverse reaction iw Medication: 12:35 VIS not applicable for this client. jp5 Outcome: 13:57 Discharge ordered by . kb 14:20 Discharged to home via wheelchair, with family, jp5 14:20 Condition: good 14:20 Discharge instructions given to patient, family, Instructed on discharge instructions, follow up and referral plans. medication usage, Demonstrated understanding of instructions, follow-up care, medications, 14:21 Patient left the ED. jp5 Signatures: Dispatcher [employer] EDMS Meagan Brody, GREASE CUP FILLER-C GREASE CUP FILLER-Ckb Parada, Rosalie, Reg Reg mr Cece Burns, RN RN iw Vijaya Culver, RN RN Magda Sheppard, DONNA RN nj1 Jolie Gallegos, RN RN jp5
[2023-09-24 14:47] VITALS: BP 126/66; TEMP 98.2; O2SAT 100
== END ==
LOC: ER 12:04
DX: R10.11 Right upper quadrant pain (principal)
CPT/HCPCS: 85025; 81001; 36415; 81025; 83690; 80053; 74177; Q9967; J2405; J7030; 96361; 96374; 96375; 99285

== ENCOUNTER 2024-01-23 15:26 | Emergency (ER) | payer SELFPAY ==
--- OUTSIDE RECORDS SUMMARY | 2024-01-23 15:28 | XMS REPORT | Continuity of Care Document ---
Author Name Unknown Address [address] [place], [place] [address]ect Address [address] [place] [address] Care Team Providers Care Roll Up Helper Name Role Phone [email or web address] Attending Clinician Unavaila ble [email or web address] Admitting Clinician Unavaila ble Encounters Start Date/Time End Date/Time Encounter Type Admission Type Attending Clinicians Care Facility Care Department Encounter ID Source 2023-05-03 00:00:00 2023-05-03 00:00:00 Outpatient [email or web address] [facility]IV [facility] [id number] [facility]
[2024-01-23] MEDS ORDERED: ONDANSETRON 4 MG/2 ML VIAL ONE (15:47)
[2024-01-23] MEDS ORDERED: NA CHLORIDE 0.9% 1,000 ML ONE (15:48)
[2024-01-23] MEDS ORDERED: FAMOTIDINE 20 MG/2 ML VIAL IV ONE (15:48)
[2024-01-23 16:00] LABS: Absolute Lymphocytes (CBC) 0.9 K/uL (0.7-4.9); Absolute Monocytes 0.6 K/uL (0.1-1.3); Absolute Neutrophil 7.5 K/uL (1.8-8.0); Basophils % 0.5 % (0-1.3); Eosinophils % 0.1 % (0-4.4); Hematocrit 41.5 % (36.0-45.0); Hemoglobin 14.1 g/dL (12.0-15.0); Lymphocytes % 10.2 % (15.3-44.8); MCH 30.7 pg (27.0-35.0); MCHC 33.9 g/dL (32.0-36.0); MCV 90.6 fL (80-100); MPV 7.4 fL (7.6-11.3); Monocytes % 6.8 % (3.3-12.3); Neutrophils % 82.4 % (41.7-73.7); Nucleated Red Blood Cells % 0.1 % (0-0); Platelets 225 thou/uL (152-406); RBC Red Blood Cell Count 4.59 M/uL (3.86-4.86); Red Cell Distribution Width 12.4 % (12.1-15.2)
[2024-01-23 16:27] LABS: Albumin/Globulin Ratio 1.1 (1.1-1.8); Anion Gap 11.6 mEq/L (5.0-15.0); Bilirubin Total 0.4 mg/dL (0.2-1.0); Globulin 3.5 g/dL (2.3-3.5); Potassium 3.6 mEq/L (3.5-5.1); Protein, Total 7.5 g/dL (6.4-8.2)
[2024-01-23 17:02] LABS: Specific Gravity > 1.030 (1.005-1.030)
[2024-01-23 17:03] LABS: Sqamous Epithelial <5 /HPF (None Seen); Urine Bacteria None Seen /HPF (<20); Urine Bilirubin NEGATIVE (Negative); Urine Blood Negative (Negative); Urine Clarity Clear (Clear); Urine Color Light-Yellow (Yellow); Urine Culture Reflex Order NOT NEEDED; Urine Glucose NEGATIVE (Negative); Urine Ketones 2+ (Negative); Urine Microscopic Reflex YN ORDER UMIC; Urine Mucus Slight /HPF (None Seen); Urine Nitrite NEGATIVE (Negative); Urine Protein NEGATIVE (Negative); Urine RBC <5 /HPF (None Seen); Urine Urobilinogen Normal (Normal); Urine WBC <5 /HPF (<5); Urine pH 7.5 (5.0-7.0)
[2024-01-23 17:05] LABS: Specific Gravity > 1.030 (1.005-1.030)
[2024-01-23 17:06] LABS: Barbiturates NEGATIVE (NEGATIVE); Benzodiazepines NEGATIVE (NEGATIVE); Cocaine NEGATIVE (NEGATIVE); METHAMPHETAM NEGATIVE (NEGATIVE); Methadone NEGATIVE (NEGATIVE); Opiates NEGATIVE (NEGATIVE); Phencyclidine NEGATIVE (NEGATIVE); THC Cannibis POSITIVE (NEGATIVE)
--- NOTE | 2024-01-23 17:49 | EDPHYS ---
Physician Documentation [facility] Name: Mallory Parra Age: 23 yrs Sex: Female : 2000 Arrival Date: 01/23/2024 Time: 15:26 Bed 14 Private MD: KRISTIN Physician Claudio Riddle HPI: 01/22 17:40 This 23 yrs old Female presents to ER via EMS with complaints of Abdominal andrew Pain. 17:40 The patient presents with abdominal pain in the upper abdomen, in the lower abdomen. andrew Onset: The symptoms/episode began/occurred 1 day(s) ago. The patient presents to the emergency department with nausea, vomiting, abdominal pain, of the right upper quadrant, left upper quadrant, right lower quadrant and left lower quadrant. Onset: The symptoms/episode began/occurred 1 day(s) ago. Possible causes: bad food exposure, pot. The symptoms are aggravated by nothing. The symptoms are alleviated by nothing. The symptoms do not radiate. Associated signs and symptoms: Pertinent positives: abdominal pain, nausea, vomiting. Modifying factors: The symptoms are alleviated by nothing, the symptoms are aggravated by nothing. Historical: - PMHx: 15:29 ADD/ADHD; Bronchitis; Depression; scoliosis; bp - PSHx: 15:29 Cholecystectomy; Spinal Fusion; bp - Immunization history:: Adult Immunizations up to date. - Infectious Disease History:: Denies. - Social history:: Smoking status: unknown. - Family history:: not pertinent. ROS: 17:40 Constitutional: Negative for fever, chills, and weight loss, Eyes: Negative for injury, andrew pain, redness, and discharge, ENT: Negative for injury, pain, and discharge, Neck: Negative for injury, pain, and swelling, Cardiovascular: Negative for chest pain, palpitations, and edema, Respiratory: Negative for shortness of breath, cough, wheezing, and pleuritic chest pain, Back: Negative for injury and pain, : Negative for injury, bleeding, discharge, and swelling, MS/Extremity: Negative for injury and deformity, Skin: Negative for injury, rash, and discoloration, Neuro: Negative for headache, weakness, numbness, tingling, and seizure, Psych: Negative for depression, anxiety, suicide ideation, homicidal ideation, and hallucinations, Allergy/Immunology: Negative for hives, rash, and allergies, Endocrine: Negative for neck swelling, polydipsia, polyuria, polyphagia, and marked weight changes, Hematologic/Lymphatic: Negative for swollen nodes, abnormal bleeding, and unusual bruising, 17:40 Abdomen/GI: Positive for abdominal pain, nausea and vomiting, Exam: 17:40 Constitutional: This is a well developed, well nourished patient who is awake, alert, andrew and in no acute distress. Head/Face: Normocephalic, atraumatic. Eyes: Pupils equal round and reactive to light, extra-ocular motions intact. Lids and lashes normal. Conjunctiva and sclera are non-icteric and not injected. Cornea within normal limits. Periorbital areas with no swelling, redness, or edema. ENT: Nares patent. No nasal discharge, no septal abnormalities noted. Tympanic membranes are normal and external auditory canals are clear. Oropharynx with no redness, swelling, or masses, exudates, or evidence of obstruction, uvula midline. Mucous membranes moist. Neck: Trachea midline, no thyromegaly or masses palpated, and no cervical lymphadenopathy. Supple, full range of motion without nuchal rigidity, or vertebral point tenderness. No Meningismus. Chest/axilla: Normal chest wall appearance and motion. Nontender with no deformity. No lesions are appreciated. Cardiovascular: Regular rate and rhythm with a normal S1 and S2. No gallops, murmurs, or rubs. Normal PMI, no JVD. No pulse deficits. Respiratory: Lungs have equal breath sounds bilaterally, clear to auscultation and percussion. No rales, rhonchi or wheezes noted. No increased work of breathing, no retractions or nasal flaring. Back: No spinal tenderness. No costovertebral tenderness. Full range of motion. Female : Normal external genitalia. Skin: Warm, dry with normal turgor. Normal color with no rashes, no lesions, and no evidence of cellulitis. MS/ Extremity: Pulses equal, no cyanosis. Neurovascular intact. Full, normal range of motion. Neuro: Awake and alert, GCS 15, oriented to person, place, time, and situation. Cranial nerves II-XII grossly intact. Motor strength 5/5 in all extremities. Sensory grossly intact. Cerebellar exam normal. Normal gait. Psych: Awake, alert, with orientation to person, place and time. Behavior, mood, and affect are within normal limits. 17:40 ECG was reviewed by the Attending Physician. 17:40 Abdomen/GI: Inspection: abdomen appears normal, Bowel sounds: normal, Palpation: Liver: no appreciated palpable abnormalities, Hernia: not appreciated, Vital Signs: 15:32 BP 140 / 84; Pulse 63; Resp 20; Temp 98.4; Pulse Ox 100% ; bp 17:56 BP 143 / 74; Pulse 78; Resp 15; Pulse Ox 100% ; bp MDM: 15:40 Patient medically screened. andrew 17:44 Differential diagnosis: gastritis, cholecystitis, pancreatitis, appendicitis, andrew diverticulitis, viral gastroenteritis, gastroenteritis, appendicitis, bowel obstruction, cholecystitis, Cholelithiasis, diverticulitis, gastritis, GI Bleed, Hepatitis, Mesenteric ischemia or infarction, non-specific abd pain, pancreatitis, Peptic Ulcer Disease, Peritonitis, Pyelonephritis, Ureterolithiasis, urinary tract infection. Data reviewed: vital signs, nurses notes, lab test result(s), EKG, radiologic studies, CT scan. Consideration of Admission/Observation Escalation of care including admission/observation considered. I considered the following discharge prescriptions or medication management in the emergency department Medications were administered in the Emergency Department. See MAR. Independent interpretation of the following test(s) in the Emergency Department EKG: See my EKG interpretation above. Test considered but Not performed: Ultrasound no abd usg. Historians other than the Patient: Parent: mom well informed. Care significantly affected by the following chronic conditions: [place] con pot smoking, add, bronchitis, depression, scliosis. 01/22 15:41 Order name: CBC with Diff; Complete Time: 16:52 andrew 01/22 15:41 Order name: CMP; Complete Time: 16:52 andrew 01/22 15:41 Order name: Lipase; Complete Time: 16:52 andrew 01/22 15:41 Order name: Test, Urine; Complete Time: 17:32 andrew 01/22 15:41 Order name: Urinalysis w/ reflexes; Complete Time: 17:32 andrew 01/22 16:45 Order name: UDS; Complete Time: 17:32 bp 01/22 16:52 Order name: EKG; Complete Time: 16:52 andrew 01/22 15:41 Order name: IV Saline Lock; Complete Time: 15:59 andrew 01/22 15:41 Order name: Labs collected and sent; Complete Time: 15:59 andrew 01/22 16:52 Order name: EKG - Nurse/Tech; Complete Time: 17:09 andrew EC:40 Rate is 59 beats/min. Rhythm is regular. QRS [place] is Normal. CT interval is normal. QRS andrew interval is normal. QT interval is normal. No Q waves. T waves are Normal. No ST changes noted. Clinical impression: Normal ECG, Sinus bradycardia, and No evidence of ischemia. Interpreted by me. Reviewed by me. Administered Medications: 15:59 Drug: NS 0.9% IV 1000 ml IV at 1 bolus Per protocol; 1000 mL bolus Route: IV; Rate: 1 bp bolus; Site: right antecubital; 17:57 Follow up: IV Status: Completed infusion; IV Intake: 1000ml bp 15:59 Drug: Famotidine IVP 20 mg IVP once; dilute with 10 mL 0.9% NaCl; give over 2 minutes bp Route: IVP; Site: right antecubital; 17:57 Follow up: Response: No adverse reaction bp 15:59 Drug: Ondansetron IVP 4 mg IVP once; over 2 minutes Route: IVP; Site: right antecubital;bp 17:57 Follow up: Response: No adverse reaction bp 17:15 Drug: Droperidol IVP 1.25 mg IVP once Route: IVP; Site: right antecubital; bp 17:57 Follow up: Response: No adverse reaction bp Disposition Summary: 01/23/24 17:49 Discharge Ordered Notes: Location: Home andrew Problem: new andrew Symptoms: have improved andrew Condition: Stable andrew Diagnosis - Abdominal pain, Generalized andrew - Vomiting andrew - Cannabis abuse with cannabis-induced anxiety disorder andrew - Cannabis abuse - hyperemesis syndrome andrew Followup: andrew - With: Private Physician - When: 2 - 3 days - Reason: Recheck today's complaints, Continuance of care, Re-evaluation by your physician Followup: andrew - With: Elif Barrera MD - When: 2 - 3 days - Reason: Recheck today's complaints, Re-evaluation by your physician Discharge Instructions: - Discharge Summary Sheet andrew - Abdominal Pain, Adult andrew - Cannabis Use Disorder andrew - Substance Use Disorder andrew - Supporting Someone With an Addiction andrew - Abdominal Pain, Adult, [id number] andrew - Vomiting, Adult andrew - Substance Use Disorder and Mental Illness andrew - Cannabinoid Hyperemesis Syndrome andrew Forms: - Work release form bd - Medication Reconciliation Form andrew - Antibiotic Education andrew - Prescription Opioid Use andrew - Patient Portal Instructions andrew - Leadership Thank You Letter andrew Signatures: Dispatcher [employer] Claudio Diaz MD MD cha Peltier, Brian, RN RN bp
--- NOTE | 2024-01-23 17:49 | ER ---
[facility] Name: Mallory Parra Age: 23 yrs Sex: Female : 2000 Arrival Date: 01/23/2024 Time: 15:26 Bed 14 Private MD: Diagnosis: Abdominal pain, Generalized;Vomiting;Cannabis abuse with cannabis-induced anxiety disorder;Cannabis abuse-hyperemesis syndrome Presentation: 01/22 15:28 Chief complaint: Patient states: ABDOMINAL PAIN. PT CALLED 911 AFTER NOT RECEIVING bp DESIRED TREATMENT AT OTHER ER. Coronavirus screen: At this time, the client does not indicate any symptoms associated with coronavirus-19. Ebola Screen: No symptoms or risks identified at this time. Initial Sepsis Screen: Does the patient meet any 2 criteria? No. Patient's initial sepsis screen is negative. Does the patient have a suspected source of infection? No. Patient's initial sepsis screen is negative. Risk Assessment: Do you want to hurt yourself or someone else? Patient reports no desire to harm self or others. Onset of symptoms is unknown. 15:28 Method Of Arrival: EMS: [facility] bp 15:28 Acuity: YOEL 3 bp Triage Assessment: 15:32 General: Appears in no apparent distress. uncomfortable, Behavior is cooperative, bp appropriate for age, agitated, anxious, crying. Pain: Complains of pain in abdomen. GI: Reports lower abdominal pain, upper abdominal pain. Historical: - PMHx: 15:29 ADD/ADHD; Bronchitis; Depression; scoliosis; bp - PSHx: 15:29 Cholecystectomy; Spinal Fusion; bp - Immunization history:: Adult Immunizations up to date. - Infectious Disease History:: Denies. - Social history:: Smoking status: unknown. - Family history:: not pertinent. Screenin:00 [facility] ED Fall Risk Assessment (Adult) History of falling in the last 3 months, bp including since admission No falls in past 3 months (0 pts) Confusion or Disorientation No (0 pts) Intoxicated or Sedated No (0 pts) Impaired Gait No (0 pts) Mobility Assist Device Used No (0 pt) Altered Elimination No (0 pt) Score/Fall Risk Level 0 - 2 = Low Risk. Abuse screen: Denies threats or abuse. Denies injuries from another. Nutritional screening: No deficits noted. Tuberculosis screening: No symptoms or risk factors identified. Assessment: 15:30 General: PT STATES SHE IS HER FOR 2ND OPINION. bp 17:56 Reassessment: Patient appears in no apparent distress at this time. Patient is alert, bp oriented x 3, equal unlabored respirations, skin warm/dry/pink. Vital Signs: 15:32 BP 140 / 84; Pulse 63; Resp 20; Temp 98.4; Pulse Ox 100% ; bp 17:56 BP 143 / 74; Pulse 78; Resp 15; Pulse Ox 100% ; bp ED Course: 15:28 Patient arrived in ED. bp 15:29 Triage completed. bp 15:32 Jose Miguel Sharma, RN is Primary Nurse. bp 15:32 Arm band placed on. bp 15:40 Claudio Riddle MD is Attending Physician. [facility] 15:59 Inserted saline lock: 22 gauge in right antecubital area, using aseptic technique. bp Blood collected. Flushed with 10 mL NS. 16:00 Patient has correct armband on for positive identification. bp 17:47 Elif Barrera MD is Referral Physician. andrew Administered Medications: 15:59 Drug: NS 0.9% IV 1000 ml IV at 1 bolus Per protocol; 1000 mL bolus Route: IV; Rate: 1 bp bolus; Site: right antecubital; 17:57 Follow up: IV Status: Completed infusion; IV Intake: 1000ml bp 15:59 Drug: Famotidine IVP 20 mg IVP once; dilute with 10 mL 0.9% NaCl; give over 2 minutes bp Route: IVP; Site: right antecubital; 17:57 Follow up: Response: No adverse reaction bp 15:59 Drug: Ondansetron IVP 4 mg IVP once; over 2 minutes Route: IVP; Site: right antecubital;bp 17:57 Follow up: Response: No adverse reaction bp 17:15 Drug: Droperidol IVP 1.25 mg IVP once Route: IVP; Site: right antecubital; bp 17:57 Follow up: Response: No adverse reaction bp Intake: 17:57 IV: 1000ml; Total: 1000ml. bp Outcome: 17:49 Discharge ordered by . andrew 18:14 Patient left the ED. bp Signatures: Claudio Riddle MD MD cha Peltier, Brian, RN RN bp
--- NOTE | 2024-01-25 13:23 | EKG ---
Test Date: 2024-01-23 Test Time: 17:11:26 Supervisor Inspection And Testing: ALP MEASUREMENT RESULTS: Intervals: Rate: 59 MO: 120 QRSD: 82 QT: 454 QTc: 449 [place]: P: 85 MO: 120 QRS: 77 T: 74 INTERPRETIVE STATEMENTS: Sinus bradycardia with sinus arrhythmia Otherwise normal ECG No previous ECG available for comparison Electronically Signed On 01-25-24 13:15:42 CDT by Sinan Rudolph
[2024-01-25 17:44] VITALS: BP 143/74; TEMP 98.4; O2SAT 100
== END 2024-01-23 18:14 | disposition home or self-care (01) ==
LOC: ER 15:26
DX: R10.84 Generalized abdominal pain (principal); F12.180 Cannabis abuse with cannabis-induced anxiety disorder; R11.10 Vomiting, unspecified
CPT/HCPCS: 36415; 80053; 80307; 81001; 81025; 83690; 85025; 93005; 96361; 96374; 96375; 99284; J2405; J7030

== ENCOUNTER 2024-05-04 03:04 | Emergency (ER) | payer OTHER ==
--- OUTSIDE RECORDS SUMMARY | 2024-05-04 03:07 | XMS REPORT | Continuity of Care Document ---
Author Name Unknown Address [address] [place], [place] [address]ect Address [address] [place] [address] [address] [place] [address] Care Team Providers Care Eap Specialist Name Role Phone [email or web address] Attending Clinician Unavaila ble [email or web address] Admitting Clinician Unavaila ble Encounters Start Date/Time End Date/Time Encounter Type Admission Type Attending Clinicians Care Facility Care Department Encounter ID Source 2023-05-03 00:00:00 2023-05-03 00:00:00 Outpatient [email or web address] [facility] [id number] [facility]
[2024-05-04] MEDS ORDERED: ONDANSETRON 4 MG/2 ML VIAL ONE (03:18)
[2024-05-04] MEDS ORDERED: NA CHLORIDE 0.9% 1,000 ML ONE ×2 (03:18→03:37)
[2024-05-04] MEDS ORDERED: PANTOPRAZOLE 40 MG INJ ONE (03:18)
[2024-05-04 03:34] LABS: Absolute Lymphocytes (CBC) 0.7 K/uL (0.7-4.9); Absolute Monocytes 0.4 K/uL (0.1-1.3); Basophils % 0.2 % (0-1.3); Hematocrit 41.1 % (36.0-45.0); Hemoglobin 13.9 g/dL (12.0-15.0); Lymphocytes % 6.8 % (15.3-44.8); MCH 30.7 pg (27.0-35.0); MCHC 33.9 g/dL (32.0-36.0); MCV 90.5 fL (80-100); MPV 7.4 fL (7.6-11.3); Monocytes % 4.1 % (3.3-12.3); Neutrophils % 88.9 % (41.7-73.7); Nucleated Red Blood Cells % 0.1 % (0-0); Platelets 285 thou/uL (152-406); RBC Red Blood Cell Count 4.54 M/uL (3.86-4.86); Red Cell Distribution Width 12.6 % (12.1-15.2)
--- NOTE | 2024-05-04 03:34 | EDPHYS ---
Physician Documentation [facility] Name: Mallory Parra Age: 23 yrs Sex: Female : 2000 Arrival Date: 05/04/2024 Time: 03:04 Bed 7 Private MD: KRISTIN Physician Claudio Riddle HPI: 05/04 03:09 This 23 yrs old Female presents to ER via Unassigned with complaints of andrew Nausea/Vomiting/Diarrhea. 03:09 The patient presents to the emergency department with nausea, vomiting, diarrhea, andrew abdominal pain, of the epigastric area, right upper quadrant and left upper quadrant. Onset: The symptoms/episode began/occurred 3 day(s) ago. Possible causes: unknown, bad food exposure, flare up of bowel problem. The symptoms are aggravated by nothing. The symptoms are alleviated by nothing. Severity of symptoms: At their worst the symptoms were moderate in the emergency department the symptoms are unchanged. The patient has not experienced similar symptoms in the past. 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 - Infectious Disease History:: Denies. - Social history:: Smoking status: Patient reports the use of cigarette tobacco products, Patient uses alcohol, street drugs, marijuana. ROS: 03:16 Constitutional: Negative for fever, chills, and weight loss, Eyes: Negative for injury, andrew pain, redness, and discharge, ENT: Negative for injury, pain, and discharge, Neck: Negative for injury, pain, and swelling, Cardiovascular: Negative for chest pain, palpitations, and edema, Abdomen/GI: Negative for abdominal pain, nausea, vomiting, diarrhea, and constipation, Back: Negative for injury and pain, : Negative for injury, bleeding, discharge, and swelling, MS/Extremity: Negative for injury and deformity, Skin: Negative for injury, rash, and discoloration, Neuro: Negative for headache, weakness, numbness, tingling, and seizure, Psych: Negative for depression, anxiety, suicide ideation, homicidal ideation, and hallucinations, Allergy/Immunology: Negative for hives, rash, and allergies, Endocrine: Negative for neck swelling, polydipsia, polyuria, polyphagia, and marked weight changes, Hematologic/Lymphatic: Negative for swollen nodes, abnormal bleeding, and unusual bruising, 03:16 Respiratory: Positive for cough, with no reported sputum, 03:16 Abdomen/GI: Positive for abdominal pain, nausea and vomiting, diarrhea, abdominal cramps, Exam: 03:16 Constitutional: This is a well developed, well nourished patient who is awake, alert, andrew and in no acute distress. Head/Face: Normocephalic, atraumatic. Eyes: Pupils equal round and reactive to light, extra-ocular motions intact. Lids and lashes normal. Conjunctiva and sclera are non-icteric and not injected. Cornea within normal limits. Periorbital areas with no swelling, redness, or edema. ENT: Nares patent. No nasal discharge, no septal abnormalities noted. Tympanic membranes are normal and external auditory canals are clear. Oropharynx with no redness, swelling, or masses, exudates, or evidence of obstruction, uvula midline. Mucous membranes moist. Neck: Trachea midline, no thyromegaly or masses palpated, and no cervical lymphadenopathy. Supple, full range of motion without nuchal rigidity, or vertebral point tenderness. No Meningismus. Chest/axilla: Normal chest wall appearance and motion. Nontender with no deformity. No lesions are appreciated. Cardiovascular: Regular rate and rhythm with a normal S1 and S2. No gallops, murmurs, or rubs. Normal PMI, no JVD. No pulse deficits. Respiratory: Lungs have equal breath sounds bilaterally, clear to auscultation and percussion. No rales, rhonchi or wheezes noted. No increased work of breathing, no retractions or nasal flaring. Back: No spinal tenderness. No costovertebral tenderness. Full range of motion. Skin: Warm, dry with normal turgor. Normal color with no rashes, no lesions, and no evidence of cellulitis. MS/ Extremity: Pulses equal, no cyanosis. Neurovascular intact. Full, normal range of motion. Neuro: Awake and alert, GCS 15, oriented to person, place, time, and situation. Cranial nerves II-XII grossly intact. Motor strength 5/5 in all extremities. Sensory grossly intact. Cerebellar exam normal. Normal gait. Psych: Awake, alert, with orientation to person, place and time. Behavior, mood, and affect are within normal limits. 03:16 Abdomen/GI: Inspection: distension, that is mild, Bowel sounds: normal, Palpation: mild abdominal tenderness, in the epigastric area, right upper quadrant and left upper quadrant, Liver: no appreciated palpable abnormalities, Hernia: not appreciated, Vital Signs: 03:08 BP 132 / 90; Pulse 56; Resp 18; Temp 98.3; Pulse Ox 100% ; Weight 72.57 kg; Height 5 bm8 ft. 0 in. ; Pain 10/10; 04:39 BP 136 / 87; Pulse 71; Resp 17; Temp 98.3; Pulse Ox 100% ; Pain 6/10; bm8 03:08 Body Mass Index 31.25 (72.57 kg, 152.4 cm) bm8 03:08 Pain Scale: Adult bm8 04:39 Pain Scale: Adult bm8 [place] Coma Score: 03:15 Eye Response: spontaneous(4). Motor Response: obeys commands(6). Verbal Response: bm8 oriented(5). Total: 15. 04:39 Eye Response: spontaneous(4). Motor Response: obeys commands(6). Verbal Response: bm8 oriented(5). Total: 15. MDM: 03:06 Medical Screening Exam initiated andrew 03:18 Differential diagnosis: Nonspecific abd pain, gastritis, pancreatitis, appendicitis, andrew diverticulitis, viral gastroenteritis, gastroenteritis, appendicitis, bowel obstruction, coronary artery disease, diverticulitis, gastritis, gastroesophageal reflux disease, GI Bleed, Hepatitis, Mesenteric ischemia or infarction, non-specific abd pain. Data reviewed: vital signs, nurses notes, lab test result(s), radiologic studies, CT scan, plain films. Consideration of Admission/Observation Escalation of care including admission/observation considered. I considered the following discharge prescriptions or medication management in the emergency department Medications were administered in the Emergency Department. See MAR. Independent interpretation of the following test(s) in the Emergency Department X-Ray: My interpretation is cxr neg. Test considered but Not performed: MRI: no mrcp available. Historians other than the Patient: EMS: ems well informed. Care significantly affected by the following chronic conditions: Obesity, scoliosis, add, adhd, scoliosois, pot. Counseling: I had a detailed discussion with the patient and/or guardian regarding the historical points, exam findings, and any diagnostic results supporting the discharge/admit diagnosis, lab results, radiology results, the need to transfer to another facility, for higher level of care, [facility] does not immediately have the required specialist. 05/04 03:08 Order name: CBC with Diff [facility] 05/04 03:08 Order name: CMP; Complete Time: 04:04 [facility] 05/04 03:08 Order name: Lipase; Complete Time: 04:04 [facility] 05/04 03:08 Order name: Urinalysis w/ reflexes; Complete Time: 05:07 [facility] 05/04 03:09 Order name: UDS; Complete Time: 05:07 [facility] 05/04 03:35 Order name: Hepatitis Panel [facility] 05/04 05:14 Order name: CBC Smear Scan [facility] 05/04 03:08 Order name: Chest Single View XRAY [facility] 05/04 03:08 Order name: IV Saline Lock; Complete Time: 03:25 [facility] 05/04 03:08 Order name: Labs collected and sent; Complete Time: 03:25 [facility] Administered Medications: 03:23 Drug: Pantoprazole IVP 40 mg IVP once Route: IVP; Site: left antecubital; bm8 04:51 Follow up: Response: No adverse reaction bm8 03:24 Drug: Ondansetron IVP 4 mg IVP once; over 2 minutes Route: IVP; Site: left antecubital; bm8 04:52 Follow up: Response: No adverse reaction bm8 03:24 Drug: NS 0.9% IV 1000 ml IV at 1 bolus Per protocol; to be given as a bolus over 60 bm8 minutes Route: IV; Rate: 1 bolus; Site: left antecubital; 04:25 Follow up: IV Status: Completed infusion; IV Intake: 1000ml bm8 03:48 Drug: fentaNYL (PF) IVP 25 mcg IVP once Route: IVP; Site: left antecubital; bm8 04:51 Follow up: Response: No adverse reaction bm8 03:48 Drug: fentaNYL (PF) IVP 25 mcg IVP once Route: IVP; Site: left antecubital; bm8 04:51 Follow up: Response: No adverse reaction bm8 03:48 Drug: Piperacillin-Tazobactam IVPB 3.375 grams IVPB once over 60 mins; (mix in NS 100 bm8 mL) Route: IVPB; Infused Over: 60 mins; Site: left antecubital; 04:51 Follow up: Response: No adverse reaction; IV Status: Completed infusion; IV Intake: bm8 100ml 03:48 Drug: NS 0.9% IV 1000 ml IV at 125 ml/hr continuous Route: IV; Rate: 125 ml/hr; Site: bm8 left antecubital; 04:51 Follow up: Response: No adverse reaction; IV Status: Infusion continued upon transfer; bm8 IV Intake: 125ml Disposition Summary: 05/04/24 03:33 Transfer Ordered Notes: Transfer Location: [facility] andrew Reason: Higher level of care andrew Condition: Fair andrew Problem: new andrew Symptoms: have improved andrew Accepting Physician: to [facility](05/04/24 05:19) bm8 Diagnosis - Epigastric abdominal tenderness andrew - Vomiting andrew - Hematemesis andrew - Elevated white blood cell count andrew - Left sided colitis without complications andrew - Abnormal level of enzymes in specimens from digestive organs and abdominal cavity - andrew elevated ALT 239, [id number] - Abuse of other non-psychoactive substances - MARIJUANA andrew Forms: - Medication Reconciliation Form andrew - SBAR form andrew Signatures: Dispatcher [employer] Claudio Diaz MD MD cha McDonald, Brad, RN RN bm8 Corrections: (The following items were deleted from the chart) 03:09 03:09 URINE DRUG SCREEN+[id number].LAB.BRZ ordered. PETERSON WINKLER 05:08 03:33 to [facility] andrew [facility] 05:19 05:08 to [facility] andrew bm8
--- NOTE | 2024-05-04 03:34 | ER ---
Nurse's Notes [facility] Name: Mallory Parra Age: 23 yrs Sex: Female : 2000 Arrival Date: 05/04/2024 Time: 03:04 Bed 7 Private MD: Diagnosis: Epigastric abdominal tenderness;Vomiting;Hematemesis;Elevated white blood cell count;Left sided colitis without complications;Abnormal level of enzymes in specimens from digestive organs and abdominal cavity-elevated ALT 239, SIO279;Abuse of other non-psychoactive substances-MARIJUANA Presentation: 05/04 03:08 Chief complaint: EMS states: pt is c/o N/V/D with a 10/10 abd pain for three days. Pt bm8 seen at [facility] today for same thing. Coronavirus screen: At this time, the client does not indicate any symptoms associated with coronavirus-19. Ebola Screen: Patient negative for fever greater than or equal to 101.5 degrees Fahrenheit, and additional compatible Ebola Virus Disease symptoms Patient denies exposure to infectious person. Patient denies travel to an Ebola-affected area in the 21 days before illness onset. No symptoms or risks identified at this time. Initial Sepsis Screen: Does the patient meet any 2 criteria? No. Patient's initial sepsis screen is negative. Does the patient have a suspected source of infection? No. Patient's initial sepsis screen is negative. Risk Assessment: Do you want to hurt yourself or someone else? Patient reports no desire to harm self or others. Onset of symptoms was April 29, 2024. 03:08 Method Of Arrival: EMS: [facility] bm8 03:08 Acuity: YOEL 3 bm8 Triage Assessment: 03:11 General: Appears in no apparent distress. comfortable, Behavior is calm, cooperative, bm8 appropriate for age. Pain: Complains of pain in abdomen Pain currently is 10 out of 10 on a pain scale. EENT: No deficits noted. No signs and/or symptoms were reported regarding the EENT system. Neuro: No deficits noted. Level of Consciousness is awake, alert, obeys commands, Oriented to person, place, time, situation, Appropriate for age. Cardiovascular: Denies chest pain, Capillary refill < 3 seconds in bilateral fingers toes Patient's skin is warm and dry. Respiratory: Airway is patent Respiratory effort is even, unlabored, Respiratory pattern is regular, symmetrical, Breath sounds are clear bilaterally. GI: Abdomen is round non-distended, obese, Bowel sounds present X 4 quads. Abd is soft and non tender Reports lower abdominal pain, upper abdominal pain, diarrhea, nausea, Pain is 10 out of 10 on a pain scale. vomiting. : No deficits noted. No signs and/or symptoms were reported regarding the genitourinary system. Derm: No deficits noted. No signs and/or symptoms reported regarding the dermatologic system. Musculoskeletal: No deficits noted. No signs and/or symptoms reported regarding the musculoskeletal system. 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 - Infectious Disease History:: Denies. - Social history:: Smoking status: Patient reports the use of cigarette tobacco products, Patient uses alcohol, street drugs, marijuana. Screenin:15 [facility] ED Fall Risk Assessment (Adult) History of falling in the last 3 months, bm8 including since admission No falls in past 3 months (0 pts) Confusion or Disorientation No (0 pts) Intoxicated or Sedated No (0 pts) Impaired Gait No (0 pts) Mobility Assist Device Used No (0 pt) Altered Elimination No (0 pt) Score/Fall Risk Level 0 - 2 = Low Risk Oriented to surroundings, Maintained a safe environment, Educated pt \T\ family on fall prevention, incl call for assistance when getting out of bed, Assessed \T\ reinforced patient's understanding of fall precautions, Hourly rounding (assess needs \T\ fall precautionary measures) done, Used ambulatory aids as needed (educated on \T\ assisted with), Used gait belt as appropriate. Abuse screen: Denies threats or abuse. Nutritional screening: No deficits noted. Tuberculosis screening: No symptoms or risk factors identified. Assessment: 03:15 Reassessment: pt appears relaxed almost asleep does not withdraw from abd examination bm8 or show sign of guarding . see triage assessment. 04:39 Reassessment: Patient appears in no apparent distress at this time. Patient and/or bm8 family updated on plan of care and expected duration. Pain level reassessed. Patient is alert, oriented x 3, equal unlabored respirations, skin warm/dry/pink. Patient states feeling better. Patient states symptoms have improved. Pain: Complains of pain in abdomen Pain currently is 6 out of 10 on a pain scale. Quality of pain is described as crampy. GI: Reports lower abdominal pain, upper abdominal pain. 04:50 Reassessment: report given to DONNA Tamez at [facility]. bm8 Vital Signs: 03:08 BP 132 / 90; Pulse 56; Resp 18; Temp 98.3; Pulse Ox 100% ; Weight 72.57 kg; Height 5 bm8 ft. 0 in. ; Pain 10/10; 04:39 BP 136 / 87; Pulse 71; Resp 17; Temp 98.3; Pulse Ox 100% ; Pain 6/10; bm8 03:08 Body Mass Index 31.25 (72.57 kg, 152.4 cm) bm8 03:08 Pain Scale: Adult bm8 04:39 Pain Scale: Adult bm8 [place] Coma Score: 03:15 Eye Response: spontaneous(4). Motor Response: obeys commands(6). Verbal Response: bm8 oriented(5). Total: 15. 04:39 Eye Response: spontaneous(4). Motor Response: obeys commands(6). Verbal Response: bm8 oriented(5). Total: 15. ED Course: 03:06 Patient arrived in ED. ha1 03:06 Claudio Riddle MD is Attending Physician. andrew 03:07 Ned Cobb, DONNA is Primary Nurse. bm8 03:11 Triage completed. bm8 03:11 Arm band placed on right wrist. bm8 03:15 Patient has correct armband on for positive identification. Placed in gown. Bed in low bm8 position. Call light in reach. Side rails up X 1. Adult w/ patient. Client placed on continuous cardiac and pulse oximetry monitoring. NIBP monitoring applied. quality assurance monitor body on. Pulse ox on. NIBP on. Door closed. Noise minimized. Visitors limited. Warm blanket given. Pillow given. Verbal reassurance given. Head of bed elevated. 03:15 No provider procedures requiring assistance completed. Initial lab(s) drawn, by ED bm8 staff, sent to lab. Inserted saline lock: 20 gauge in left antecubital area, using aseptic technique. Blood collected. Flushed with 10 mL NS. Patient maintains SpO2 saturation greater than 95% on room air. 03:32 Claudio Riddle initiated transfer with matthias clay \T\ [facility]. kmf 03:46 Chest Single View XRAY In Process Unspecified. EDMS 05:03 pt was accepted to [facility] by Dr. Mckeon, Geronimo \T\ [id number]. Number for nurse to nurse report [facility] [phone]. Admin approval given by Matthias Clay \T\[id number]. Pt will go to [address] [place] [address]. [facility] to transfer pt. 05:18 Patient transferred, IV remains in place. 8 05:19 Provided Education on: need for transfer. bm8 Administered Medications: 03:23 Drug: Pantoprazole IVP 40 mg IVP once Route: IVP; Site: left antecubital; bm8 04:51 Follow up: Response: No adverse reaction bm8 03:24 Drug: Ondansetron IVP 4 mg IVP once; over 2 minutes Route: IVP; Site: left antecubital; bm8 04:52 Follow up: Response: No adverse reaction bm8 03:24 Drug: NS 0.9% IV 1000 ml IV at 1 bolus Per protocol; to be given as a bolus over 60 bm8 minutes Route: IV; Rate: 1 bolus; Site: left antecubital; 04:25 Follow up: IV Status: Completed infusion; IV Intake: 1000ml bm8 03:48 Drug: fentaNYL (PF) IVP 25 mcg IVP once Route: IVP; Site: left antecubital; bm8 04:51 Follow up: Response: No adverse reaction bm8 03:48 Drug: fentaNYL (PF) IVP 25 mcg IVP once Route: IVP; Site: left antecubital; bm8 04:51 Follow up: Response: No adverse reaction bm8 03:48 Drug: Piperacillin-Tazobactam IVPB 3.375 grams IVPB once over 60 mins; (mix in NS 100 bm8 mL) Route: IVPB; Infused Over: 60 mins; Site: left antecubital; 04:51 Follow up: Response: No adverse reaction; IV Status: Completed infusion; IV Intake: bm8 100ml 03:48 Drug: NS 0.9% IV 1000 ml IV at 125 ml/hr continuous Route: IV; Rate: 125 ml/hr; Site: bm8 left antecubital; 04:51 Follow up: Response: No adverse reaction; IV Status: Infusion continued upon transfer; bm8 IV Intake: 125ml Medication: 03:15 VIS not applicable for this client. bm8 Intake: 04:25 IV: 1000ml; Total: 1000ml. bm8 04:51 IV: 100ml; Total: 1100ml. bm8 04:51 IV: 125ml; Total: 1225ml. bm8 Outcome: 03:33 ER care complete, transfer ordered by MD. morales 05:18 Transferred by ground EMS to [facility], Transfer form completed. bm8 X-rays sent w/ patient. 05:18 Condition: stable 05:18 Instructed on the need for transfer, Demonstrated understanding of instructions, follow-up care, medications, 05:19 Patient left the ED. bm8 Signatures: Dispatcher [employer] Claudio Diaz MD MD cha Ayala, Heidy, RN RN [email or web address] Vika Edward Brad, RN RN bm8
[2024-05-04] MEDS ORDERED: FENTANYL CITR 100 MCG/2 ML ONE (03:36)
[2024-05-04] MEDS ORDERED: PIPERACIL/TAZO 3.375 GM VIAL IV ONE (03:37)
[2024-05-04] MEDS ORDERED: NA CHLORIDE 0.9% 100 ML ONE (03:37)
[2024-05-04 03:51] LABS: Albumin 3.6 g/dL (3.4-5.0); Anion Gap 8.5 mEq/L (5.0-15.0); Bilirubin Total 0.4 mg/dL (0.2-1.0); Globulin 3.5 g/dL (2.3-3.5); Potassium 3.5 mEq/L (3.5-5.1); Protein, Total 7.1 g/dL (6.4-8.2)
[2024-05-04 04:40] LABS: Urine Bacteria <20 /HPF (<20); Urine Bilirubin NEGATIVE (Negative); Urine Blood Negative (Negative); Urine Clarity Clear (Clear); Urine Color Light-Yellow (Yellow); Urine Culture Reflex Order NOT NEEDED; Urine Glucose 3+ (Negative); Urine Ketones 3+ (Negative); Urine Microscopic Reflex YN ORDER UMIC; Urine Mucus Slight /HPF (None Seen); Urine Nitrite NEGATIVE (Negative); Urine Protein NEGATIVE (Negative); Urine RBC <5 /HPF (None Seen); Urine Urobilinogen Normal (Normal); Urine WBC <5 /HPF (<5)
[2024-05-04 04:53] LABS: Barbiturates NEGATIVE (NEGATIVE); Benzodiazepines NEGATIVE (NEGATIVE); Cocaine NEGATIVE (NEGATIVE); METHAMPHETAM NEGATIVE (NEGATIVE); Methadone NEGATIVE (NEGATIVE); Opiates NEGATIVE (NEGATIVE); Phencyclidine NEGATIVE (NEGATIVE); Specific Gravity > 1.030 (1.005-1.030); THC Cannibis POSITIVE (NEGATIVE)
[2024-05-04 05:14] LABS: Blood Morphology Comment NOT SEEN (NOT SEEN); Platelet Estimate ADEQ; White Blood Cell Scan OK (OK)
[2024-05-04 05:27] VITALS: TEMP 98.3; O2SAT 100
[2024-05-04 05:28] VITALS: BP 136/87
[2024-05-04 06:00] LABS: HBsAG Nonreactive Report Report; Hepatitis B Core IgM Nonreactive (Nonreactive); Hepatitis B surface AG Interp. Nonreactive (Nonreactive); Hepatitis C Virus Ab Nonreactive (Nonreactive)
--- NOTE | 2024-05-04 06:09 | RAD REPORT ---
EXAM: XR Chest, 1 View CLINICAL HISTORY: The patient is 23 years old and is Female; HEMOPTYSIS TECHNIQUE: Frontal view of the chest. COMPARISON: No relevant prior studies available. FINDINGS: Lungs: Unremarkable. No consolidation. Pleural space: Unremarkable. No pneumothorax. Heart: Unremarkable. Mediastinum: Unremarkable. Normal mediastinal contour. Bones/joints: No acute findings. IMPRESSION: No acute findings in the chest. Electronically signed by: Kendell Yuen MD 05/04/2024 05:36 AM CDT 8 Due to temporary technical issues with the PACS/SwiftPayMD(TM) by [employer] reporting system, reports are being augustin d by the in-house radiologist without review as a courtesy to ensure prompt reporting the interpreting radiologist is fully responsible for the content of the report. Transcribed Date/Time: 05/04/2024 6:09 AM
== END 2024-05-04 05:19 | disposition short-term general hospital (02) ==
LOC: ER 03:04
DX: R10.816 Epigastric abdominal tenderness (principal); K92.0 Hematemesis; K51.50 Left sided colitis without complications; D72.829 Elevated white blood cell count, unspecified; R85.0 Abnormal level of enzymes in specimens from digestive organs and abdominal cavity; F12.10 Cannabis abuse, uncomplicated; F32.A Depression, unspecified; F90.9 Attention-deficit hyperactivity disorder, unspecified type
CPT/HCPCS: 96365; 85025; 81001; 36415; 83690; 80053; 80307; 80074; 71045; 96375; 99285; J2543; J2470; J3010; J2405; J7030 ×2